=== PATIENT | female | born 1950 | race Caucasian/White ===

== ENCOUNTER 2017-03-31 17:17 | Inpatient (IN) | payer OTHER ==
--- NOTE | 2017-03-31 18:33 | ER Document Report ---
ED General - General Chief Complaint: Nose Bleed Stated Complaint: POSSIBLE SYNCOPE EPISODE Time Seen by Provider: 03/31/17 18:16 Mode of Arrival: Ambulatory Information source: Patient TRAVEL OUTSIDE OF THE [place] IN LAST 30 DAYS: No - HPI Patient complains to provider of: nosebleed, dark stools Onset: Other - Dark colored stools of been going on for 3-4 days, no bleeding since yesterday evening Onset/Duration: Gradual Quality of pain: No pain Associated symptoms: Weakness Exacerbated by: Denies Relieved by: Denies Similar symptoms previously: No Recently seen / treated by doctor: No Notes: Patient is a 66-year-old female who presents to the emergency room complaining of nosebleed since yesterday evening, she denies any trauma, states she blew her nose really hard and it has been bleeding since, although it has subsided by the time I examined her, she denies any pain, no difficulty breathing, she does report that she feels tired a lot, her daughter at bedside reports that she has been having some dark blackish colored stools for the past 4-5 days as well, patient has no known GI bleed in the past, she does not take any blood thinners but does use 2 or more Goody powders daily denies any abdominal pain, no vomiting, no fever - Related Data Allergies/Adverse Reactions: No Known Allergies Allergy (Unverified 06/28/16 18:16) Past Medical History - General Information source: Patient, Relative - Social History Smoking Status: Never Smoker Chew tobacco use (# tins/day): Yes Frequency of alcohol use: None Drug Abuse: None Family History: DM, Hypertension - Past Medical History Cardiac Medical History: Reports: Hx Hypercholesterolemia, Hx Hypertension Neurological Medical History: Reports: Hx Cerebrovascular Accident Endocrine Medical History: Reports: Hx Diabetes Mellitus Type 2 Psychiatric Medical History: Reports: Hx Depression Past Surgical History: Reports: Hx Hysterectomy, Hx Tubal Ligation - Immunizations Hx Diphtheria, Pertussis, Tetanus Vaccination: Yes Review of Systems - Review of Systems Constitutional: No symptoms reported EENT: See HPI Cardiovascular: No symptoms reported Respiratory: No symptoms reported Gastrointestinal: See HPI Genitourinary: No symptoms reported Female Genitourinary: No symptoms reported Musculoskeletal: No symptoms reported Skin: No symptoms reported Hematologic/Lymphatic: No symptoms reported Neurological/Psychological: No symptoms reported -: Yes All other systems reviewed and negative Physical Exam - Vital signs Vitals: Resp Pulse Ox 12 97 03/31/17 17:38 03/31/17 17:38 Interpretation: Normal - General General appearance: Appears well, Alert - HEENT Head: Normocephalic, Atraumatic Eyes: Normal Conjunctiva: Normal Extraocular movements intact: Yes Eyelashes: Normal Pupils: PERRL Nasal: Other - There is a large blood clot in the left nare, no active bleeding Pharynx: Normal Neck: Normal - Respiratory Respiratory status: No respiratory distress Chest status: Nontender Breath sounds: Normal Chest palpation: Normal - Cardiovascular Rhythm: Regular Heart sounds: Normal auscultation Murmur: No - Abdominal Inspection: Normal Distension: No distension Bowel sounds: Normal Tenderness: Nontender Organomegaly: No organomegaly - Rectal Tenderness: No Stool: Black Hemorrhoids: None - Back Back: Normal, Nontender - Extremities General upper extremity: Normal inspection, Nontender, Normal color, Normal ROM , Normal temperature General lower extremity: Normal inspection, Nontender, Normal color, Normal ROM , Normal temperature, Normal weight bearing. No: Nessa's sign - Neurological Neuro grossly intact: Yes Cognition: Normal Orientation: AAOx4 [place] Coma Scale Eye Opening: Spontaneous [place] Coma Scale Verbal: Oriented [place] Coma Scale Motor: Obeys Commands [place] Coma Scale Total: 15 Speech: Normal Motor strength normal: LUE, RUE, LLE, RLE Sensory: Normal - Psychological Associated symptoms: Normal affect, Normal mood - Skin Skin Temperature: Warm Skin Moisture: Dry Skin Color: Normal Course - Re-evaluation Re-evalutation: 03/31/17 19:40 Discussed with on-call trim operator, Dr. Seaman, who the patient and likely scope her in the morning, recommend that she may eat dinner tonight then maintain a clear liquid diet afyter midnight and he will evaluate patient in the morning 03/31/17 19:51 Discussed with the hospitalist who agreed to admit for further evaluation and treatment - Vital Signs Vital signs: Temp Pulse Resp BP Pulse Ox 97.8 F 14 134/75 H 94 03/31/17 19:12 03/31/17 18:01 03/31/17 18:01 03/31/17 18:30 - Laboratory Result Diagrams: 03/31/17 18:45 03/31/17 18:45 Laboratory results interpreted by me: 03/31/17 03/31/17 03/31/17 18:45 18:45 18:45 WBC 14.8 H RBC 3.67 L Hgb 10.4 L Hct 32.2 L Seg Neutrophils % 83.4 H Monocytes % 2.7 L Absolute Neutrophils 12.4 H APTT 22.0 L BUN 49 H Glucose 278 H Total Protein 6.1 L - EKG Interpretation by Me EKG shows normal: Sinus rhythm Rate: Normal Rhythm: NSR Discharge - Discharge Clinical Impression: Upper GI bleed Condition: Fair Disposition: ADMITTED INPATIENT Admitting Provider: Hospitalist Unit Admitted: [facility]
[2017-03-31 19:00] LABS: ABSOLUTE MONOCYTES (AUTO) 0.4 10^3/uL (0.1-1.4); ABSOLUTE NEUT (AUTO) 12.4 10^3/uL (1.7-8.2); BASOPHILS % (AUTO) 0.3 % (0-2); EOSINOPHILS % (AUTO) 0.2 % (0-6); HEMATOCRIT 32.2 % (36.0-47.0); HEMOGLOBIN 10.4 g/dL (12.0-15.5); LYMPHOCYTES % (AUTO) 13.4 % (13-45); MEAN CORPUSCULAR HEMOGLOBIN 28.3 pg (27.0-33.4); MEAN CORPUSCULAR HGB CONC 32.3 g/dL (32.0-36.0); MEAN CORPUSCULAR VOLUME 88 fl (80-97); MONOCYTES % (AUTO) 2.7 % (3-13); RED BLOOD COUNT 3.67 10^6/uL (3.72-5.28); RED CELL DISTRIBUTION WIDTH 13.2 % (11.5-14.0); SEGMENTED NEUTROPHILS % (AUTO) 83.4 % (42-78); WHITE BLOOD COUNT 14.8 10^3/uL (4.0-10.5)
[2017-03-31 19:04] LABS: PROTHROMBIN TIME 13.7 SEC (11.4-15.4)
[2017-03-31 19:19] LABS: ALANINE AMINOTRANSFERASE 22 U/L (9-52); ALBUMIN 3.5 g/dL (3.5-5.0); ALKALINE PHOSPHATASE 55 U/L (38-126); ANION GAP 10 (5-19); ASPARTATE AMINO TRANSFERASE 14 U/L (14-36); BILIRUBIN,DIRECT 0.3 mg/dL (0.0-0.4); BILIRUBIN,TOTAL 0.4 mg/dL (0.2-1.3); BLOOD UREA NITROGEN 49 mg/dL (7-20); CALCIUM 8.9 mg/dL (8.4-10.2); CARBON DIOXIDE 24 mmol/L (22-30); CHLORIDE 104 mmol/L (98-107); CREATININE RESULT 0.93 mg/dL (0.52-1.25); GLUCOSE 278 mg/dL (75-110); POTASSIUM 4.9 mmol/L (3.6-5.0); SODIUM 138.2 mmol/L (137-145); TOTAL PROTEIN 6.1 g/dL (6.3-8.2)
[2017-03-31] MEDS ORDERED: PANTOPRAZOLE SODIUM 40 MG VIAL IV ONE (19:35)
[2017-03-31] MEDS ORDERED: GLUCAGON,HUMAN RECOMB 1 MG INJ IM PRN (19:52)
[2017-03-31] MEDS ORDERED: DEXTROSE 40% GEL 15 GM TUBE PO PRN ×2 (19:52)
[2017-03-31] MEDS ORDERED: IPRATROPIUM/ALBUTEROL 0.5-2.5 MG/3 ML AMPUL NEB PRN (19:52)
[2017-03-31] MEDS ORDERED: DEXTROSE 50%-WATER 25 GM/50 ML DISP.SYRIN IV PRN ×2 (19:52)
[2017-03-31] MEDS: PANTOPRAZOLE SODIUM 40 MG VIAL IV PRN (20:14)
[2017-03-31] MEDS: NORMAL SALINE 1000 ML 1,000 ML IV SCH (20:14)
[2017-03-31 20:32] LABS: PROTHROMBIN TIME 13.7 SEC (11.4-15.4)
--- NOTE | 2017-03-31 22:18 | PDOC H&P ---
History of Present Illness Admission Date/PCP: 03/31/17 19:52 Patient complains of: Black stools and nosebleed History of Present Illness: LENA OWUSU is a 66 year old female with a past medical history of hypertension , coronary artery disease, and diabetes. Who has had several days of dark colored stools and 24 hours of epistasis prompting her to seek evaluation in the emergency room. She is found to have a reduction in her hemoglobin from baseline and referred to the hospitalist for admission. She admits some nausea with vomiting of gastric content but no bright red blood or coffee-ground material. She denies history of previous GI bleeding or endoscopy. No new medicines however she takes 2 Goody powder packets per day. Past Medical History Cardiac Medical History: Reports: Hyperlipidema, Hypertension Endocrine Medical History: Reports: Diabetes Mellitus Type 2 Psychiatric Medical History: Reports: Depression Past Surgical History Past Surgical History: Reports: Hysterectomy, Tubal Ligation Social History Information Source: Patient Lives with: Family Smoking Status: Never Smoker Frequency of Alcohol Use: None Hx Recreational Drug Use: No Hx Prescription Drug Abuse: No - Advance Directive Resuscitation Status: Full Code Family History Family History: DM, Hypertension Parental Family History Reviewed: Yes Children Family History Reviewed: Yes Sibling(s) Family History Reviewed.: Yes Medication/Allergy Home Medications: Albuterol Sulfate [Proair HFA] 2 puff IH Q6HP PRN 03/31/17 Atorvastatin Calcium [Lipitor 40 mg Tablet] 40 mg PO QHS 03/31/17 Carvedilol [Coreg 12.5 mg Tablet] 12.5 mg PO Q12 03/31/17 Chlorthalidone [Chlorthalidone 25 mg Tablet] 12.5 mg PO DAILY 03/31/17 Clonidine HCl [Catapres 0.1 mg Tablet] 0.1 mg PO DAILYP PRN 03/31/17 Clopidogrel Bisulfate [Plavix 75 mg Tablet] 75 mg PO DAILY 03/31/17 Fluoxetine HCl [Prozac] 10 mg PO QHS 03/31/17 Glimepiride [Amaryl 4 mg Tablet] 4 mg PO DAILY 03/31/17 Lisinopril [Prinivil 40 mg Tablet] 40 mg PO DAILY 03/31/17 Metformin HCl [Glucophage] 1,000 mg PO BIDACBS 03/31/17 Pramipexole Di-HCl [Mirapex] 0.125 mg PO QHS 03/31/17 Sitagliptin Phosphate [Januvia] 100 mg PO DAILY 03/31/17 Zolpidem Tartrate [Ambien] 10 mg PO QHS 03/31/17 Allergies/Adverse Reactions: No Known Allergies Allergy (Unverified 06/28/16 18:16) Review of Systems Constitutional: ABSENT: chills, fever(s), headache(s), weight gain, weight loss Eyes: ABSENT: visual disturbances Ears: ABSENT: hearing changes Cardiovascular: ABSENT: chest pain, dyspnea on exertion, edema, orthropnea, palpitations Respiratory: ABSENT: cough, hemoptysis Gastrointestinal: ABSENT: abdominal pain, constipation, diarrhea, hematemesis, hematochezia, nausea, vomiting Genitourinary: ABSENT: dysuria, hematuria Musculoskeletal: ABSENT: joint swelling Integumentary: ABSENT: rash, wounds Neurological: ABSENT: abnormal gait, abnormal speech, confusion, dizziness, focal weakness, syncope Psychiatric: ABSENT: anxiety, depression, homidical ideation, suicidal ideation Endocrine: ABSENT: cold intolerance, heat intolerance, polydipsia, polyuria Hematologic/Lymphatic: ABSENT: easy bleeding, easy bruising Physical Exam Vital Signs: Temp Pulse Resp BP Pulse Ox 97.8 F 16 130/67 H 95 03/31/17 19:12 03/31/17 21:01 03/31/17 21:01 03/31/17 21:01 General appearance: PRESENT: no acute distress, obese, well-developed, well- nourished Head exam: PRESENT: atraumatic, normocephalic Eye exam: PRESENT: conjunctiva pink, EOMI, PERRLA. ABSENT: scleral icterus Ear exam: PRESENT: normal external ear exam Mouth exam: PRESENT: moist, tongue midline Neck exam: ABSENT: carotid bruit, JVD, lymphadenopathy, thyromegaly Respiratory exam: PRESENT: clear to auscultation prasad. ABSENT: rales, rhonchi, wheezes Cardiovascular exam: PRESENT: RRR. ABSENT: diastolic murmur, rubs, systolic murmur Pulses: PRESENT: normal dorsalis pedis pul Vascular exam: PRESENT: normal capillary refill GI/Abdominal exam: PRESENT: normal bowel sounds, soft. ABSENT: distended, guarding, mass, organolmegaly, rebound, tenderness Rectal exam: PRESENT: deferred Extremities exam: PRESENT: full ROM. ABSENT: calf tenderness, clubbing, pedal edema Neurological exam: PRESENT: alert, awake, oriented to person, oriented to place , oriented to time, oriented to situation, CN II-XII grossly intact. ABSENT: motor sensory deficit Psychiatric exam: PRESENT: appropriate affect, normal mood. ABSENT: homicidal ideation, suicidal ideation Skin exam: PRESENT: dry, intact, warm. ABSENT: cyanosis, rash Assessment & Plan - Diagnosis (1) Upper GI bleed Is this a current diagnosis for this admission?: YesPlan: Likely NSAID gastritis, n.p.o., IV Protonix, serial CBC, type and screen as needed and GI consult for upper EGD (2) Anemia Is this a current diagnosis for this admission?: YesPlan: Please see #1 (3) Epistaxis Is this a current diagnosis for this admission?: YesPlan: Patient's black colored stool was apparent prior to epistasis. Consider ENT consultation if Afrin and tamponade unsuccessful. (4) Type 2 diabetes mellitus with hyperglycemia Qualifiers: Diabetes mellitus long-term insulin use: unspecified extermination supervisor insulin use status Qualified Code(s): E11.65 - Type 2 diabetes mellitus with hyperglycemia Is this a current diagnosis for this admission?: YesPlan: N.p.o. insulin protocol every 6 hours - Time Time Spent: 50 to 70 Minutes - Inpatient Certification Medical Necessity: Need Close Monitoring Due to Risk of Patient Decompensation
[2017-03-31] MEDS: HEPARIN SOD (PORCINE) 5,000 UNIT/ML 1 ML SYRINGE SUBCUT SCH (22:36)
[2017-03-31] MEDS ORDERED: OXYMETAZOLINE HCL 0.05% NASAL SPRAY 15 ML BOTTLE NASL ONE (23:15)
[2017-03-31] MEDS: CLONIDINE HCL 0.2 MG TABLET PO SCH (23:20)
[2017-03-31] MEDS ORDERED: OXYMETAZOLINE HCL 0.05% NASAL SPRAY 15 ML BOTTLE ONE (23:26)
[2017-04-01 00:42] LABS: ABSOLUTE BASOPHILS # (AUTO) 0.1 10^3/uL (0.0-0.2); ABSOLUTE LYMPHOCYTES (AUTO) 3.6 10^3/uL (0.5-4.7); ABSOLUTE MONOCYTES (AUTO) 0.6 10^3/uL (0.1-1.4); ABSOLUTE NEUT (AUTO) 8.9 10^3/uL (1.7-8.2); BASOPHILS % (AUTO) 0.6 % (0-2); EOSINOPHILS % (AUTO) 0.3 % (0-6); HEMATOCRIT 28.8 % (36.0-47.0); HEMOGLOBIN 9.4 g/dL (12.0-15.5); HGB HCT DIFFERENCE -0.6; MEAN CORPUSCULAR HEMOGLOBIN 28.4 pg (27.0-33.4); MEAN CORPUSCULAR HGB CONC 32.7 g/dL (32.0-36.0); MEAN CORPUSCULAR VOLUME 87 fl (80-97); MONOCYTES % (AUTO) 4.9 % (3-13); RED BLOOD COUNT 3.32 10^6/uL (3.72-5.28); RED CELL DISTRIBUTION WIDTH 13.1 % (11.5-14.0); SEGMENTED NEUTROPHILS % (AUTO) 67.2 % (42-78); WHITE BLOOD COUNT 13.3 10^3/uL (4.0-10.5)
[2017-04-01] MEDS: INSULIN LISPRO 100 UNIT/ML 3 ML VIAL SUBCUT PRN ×5 (01:11→22:00)
[2017-04-01 04:47] LABS: ABSOLUTE BASOPHILS # (AUTO) 0.1 10^3/uL (0.0-0.2); ABSOLUTE EOSINOPHILS # (AUTO) 0.1 10^3/uL (0.0-0.6); ABSOLUTE LYMPHOCYTES (AUTO) 4.1 10^3/uL (0.5-4.7); ABSOLUTE MONOCYTES (AUTO) 0.7 10^3/uL (0.1-1.4); ABSOLUTE NEUT (AUTO) 8.7 10^3/uL (1.7-8.2); BASOPHILS % (AUTO) 0.6 % (0-2); EOSINOPHILS % (AUTO) 0.6 % (0-6); HEMATOCRIT 26.9 % (36.0-47.0); HEMOGLOBIN 8.8 g/dL (12.0-15.5); HGB HCT DIFFERENCE -0.5; LYMPHOCYTES % (AUTO) 29.8 % (13-45); MEAN CORPUSCULAR HEMOGLOBIN 28.6 pg (27.0-33.4); MEAN CORPUSCULAR HGB CONC 32.9 g/dL (32.0-36.0); MEAN CORPUSCULAR VOLUME 87 fl (80-97); MONOCYTES % (AUTO) 5.3 % (3-13); RED BLOOD COUNT 3.09 10^6/uL (3.72-5.28); RED CELL DISTRIBUTION WIDTH 13.2 % (11.5-14.0); SEGMENTED NEUTROPHILS % (AUTO) 63.7 % (42-78); WHITE BLOOD COUNT 13.6 10^3/uL (4.0-10.5)
[2017-04-01] MEDS: HEPARIN SOD (PORCINE) 5,000 UNIT/ML 1 ML SYRINGE SUBCUT SCH ×3 (04:53→22:32)
[2017-04-01] MEDS: CLONIDINE HCL 0.2 MG TABLET PO SCH ×3 (04:54→22:31)
[2017-04-01 05:05] LABS: ANION GAP 12 (5-19); BLOOD UREA NITROGEN 42 mg/dL (7-20); CALCIUM 8.4 mg/dL (8.4-10.2); CARBON DIOXIDE 25 mmol/L (22-30); CHLORIDE 105 mmol/L (98-107); GLUCOSE 252 mg/dL (75-110); SODIUM 141.7 mmol/L (137-145)
[2017-04-01 05:27] LABS: POTASSIUM 3.8 mmol/L (3.6-5.0)
[2017-04-01] MEDS ORDERED: NORMAL SALINE 250 ML IV PRN ×2 (05:45)
[2017-04-01 06:14] LABS: APPEARANCE,URINE SLIGHTLY-CLOUDY; BILIRUBIN,URINE NEGATIVE (NEGATIVE); GLUCOSE, URINE >=500 mg/dL (NEGATIVE); KETONES,URINE NEGATIVE (NEGATIVE); LEUKOCYTE ESTERASE,URINE LARGE (NEGATIVE); NITRITE,URINE NEGATIVE (NEGATIVE); PROTEIN,URINE NEGATIVE (NEGATIVE); URINE SPECIFIC GRAVITY 1.013; UROBILINOGEN,URINE NEGATIVE mg/dL (<2.0)
[2017-04-01] MEDS: PANTOPRAZOLE SODIUM 40 MG VIAL IV PRN ×2 (07:38→18:47)
--- NOTE | 2017-04-01 07:52 | EKG REPORT ---
SEVERITY:- NORMAL ECG - SINUS RHYTHM : Confirmed by: Dinesh Thapa MD 01-Apr-2017 07:51:23
--- NOTE | 2017-04-01 10:04 | PDOC PROGRESS REPORT ---
Subjective Progress Note for:: 04/01/17 Subjective:: Denies having any further melanotic stool Physical Exam Vital Signs: Temp Pulse Resp BP Pulse Ox 97.9 F 83 18 141/62 H 91 L 04/01/17 07:26 04/01/17 07:26 04/01/17 07:26 04/01/17 07:26 04/01/17 07:26 Intake & Output 03/31/17 04/01/17 04/02/17 06:59 06:59 06:59 Intake Total 1600 Output Total 0 Balance 1600 General appearance: PRESENT: no acute distress Eye exam: PRESENT: conjunctiva pink. ABSENT: scleral icterus Mouth exam: PRESENT: moist, tongue midline Neck exam: ABSENT: JVD Respiratory exam: PRESENT: clear to auscultation prasad. ABSENT: rales, rhonchi, wheezes Cardiovascular exam: PRESENT: RRR. ABSENT: diastolic murmur, rubs, systolic murmur GI/Abdominal exam: PRESENT: normal bowel sounds, soft. ABSENT: distended, guarding, mass, organolmegaly, rebound, tenderness Extremities exam: ABSENT: calf tenderness, clubbing, pedal edema Neurological exam: PRESENT: alert, awake, oriented to person, oriented to place , oriented to time, oriented to situation, CN II-XII grossly intact. ABSENT: motor sensory deficit Psychiatric exam: PRESENT: appropriate affect Skin exam: PRESENT: dry, intact, warm. ABSENT: cyanosis, rash Results Laboratory Results: 04/01/17 03:41 04/01/17 03:41 04/01/17 04/01/17 04/01/17 00:33 03:41 03:41 WBC 13.3 H 13.6 H RBC 3.32 L 3.09 L Hgb 9.4 L 8.8 L Hct 28.8 L 26.9 L MCV 87 87 MCH 28.4 28.6 MCHC 32.7 32.9 RDW 13.1 13.2 Plt Count 308 291 Seg Neutrophils % 67.2 63.7 Lymphocytes % 27.0 29.8 Monocytes % 4.9 5.3 Eosinophils % 0.3 0.6 Basophils % 0.6 0.6 Absolute Neutrophils 8.9 H 8.7 H Absolute Lymphocytes 3.6 4.1 Absolute Monocytes 0.6 0.7 Absolute Eosinophils 0.0 0.1 Absolute Basophils 0.1 0.1 Sodium 141.7 Potassium 3.8 D Chloride 105 Carbon Dioxide 25 Anion Gap 12 BUN 42 H Creatinine 0.90 Est GFR ( Amer) > 60 Est GFR (Non-Af Amer) > 60 Glucose 252 H Calcium 8.4 Urine Color Urine Appearance Urine pH Ur Specific [place] Urine Protein Urine Glucose (UA) Urine Ketones Urine Blood Urine Nitrite Ur Leukocyte Esterase Urine WBC (Auto) Urine RBC (Auto) Blood Type Antibody Screen 04/01/17 04/01/17 05:45 05:56 WBC RBC Hgb Hct MCV MCH MCHC RDW Plt Count Seg Neutrophils % Lymphocytes % Monocytes % Eosinophils % Basophils % Absolute Neutrophils Absolute Lymphocytes Absolute Monocytes Absolute Eosinophils Absolute Basophils Sodium Potassium Chloride Carbon Dioxide Anion Gap BUN Creatinine Est GFR ( Amer) Est GFR (Non-Af Amer) Glucose Calcium Urine Color STRAW Urine Appearance SLIGHTLY-CLOUDY Urine pH 5.0 Ur Specific [place] 1.013 Urine Protein NEGATIVE Urine Glucose (UA) >=500 H Urine Ketones NEGATIVE Urine Blood SMALL H Urine Nitrite NEGATIVE Ur Leukocyte Esterase LARGE H Urine WBC (Auto) 88 Urine RBC (Auto) 4 Blood Type A POSITIVE Antibody Screen NEGATIVE Assessment & Plan - Diagnosis (1) Anemia Is this a current diagnosis for this admission?: YesPlan: Has had epistaxis along with melanotic stool. Is unclear whether her melena may be from her epistaxis or whether it is from an upper GI source. Patient is to be evaluated by gastroenterology today (2) Upper GI bleed Is this a current diagnosis for this admission?: YesPlan: Patient to be evaluated by GI today (3) Hyperlipidemia Qualifiers: Hyperlipidemia type: unspecified Qualified Code(s): E78.5 - Hyperlipidemia, unspecified Is this a current diagnosis for this admission?: Yes (4) Type 2 diabetes mellitus with hyperglycemia Qualifiers: Diabetes mellitus prison insulin use: unspecified equipment operator intermodal yard insulin use status Qualified Code(s): E11.65 - Type 2 diabetes mellitus with hyperglycemia Is this a current diagnosis for this admission?: YesPlan: Continue with sliding scale insulin - Time Time Spent with patient: 25-34 minutes - Inpatient Certification Medical Necessity: Need Close Monitoring Due to Risk of Patient Decompensation - Plan Summary Plan Summary: Patient to be evaluated by GI today.
[2017-04-01] MEDS ORDERED: NALOXONE HCL INJ/PF 0.4 MG/1 ML SDV ONE (10:42)
[2017-04-01] MEDS ORDERED: ONDANSETRON HCL INJ/PF 4 MG/2 ML SDV ONE (10:42)
[2017-04-01] MEDS ORDERED: DIPHENHYDRAMINE HCL 50 MG/ML VIAL ONE (10:42)
[2017-04-01] MEDS ORDERED: EPINEPHRINE INJ 1 MG/10 ML DISP.SYRIN ONE (10:43)
[2017-04-01] MEDS ORDERED: GLUCAGON,HUMAN RECOMB 1 MG INJ ONE (10:43)
[2017-04-01] MEDS ORDERED: FLUMAZENIL INJ 0.5 MG/5 ML VIAL IV ONE (10:43)
--- NOTE | 2017-04-01 11:08 | PDOC CONSULTATION ---
Consultation Consult Date: 03/31/17 Attending physician:: ROSA ORTIZ Consult reason:: Melena History of Present Illness Admission Date/PCP: 03/31/17 19:52 History of Present Illness: patient was admitted overnight on the hospitalist service patient had been having nose bleeds and according to the family had been swallowing the blood however she not was noted to be anemia and does have a history of Goody Powder use patient states she got nauseated denies any previous history of GI bleeding does have a history of GERD there is no dysphagia or odynophagia appetite seems to be normal there is no early satiety patient will need EGD done to exclude for possible peptic ulcer disease she is willing to proceed Past Medical History Cardiac Medical History: Reports: Hyperlipidema, Hypertension Endocrine Medical History: Reports: Diabetes Mellitus Type 2 Psychiatric Medical History: Reports: Depression Past Surgical History Past Surgical History: Reports: Hysterectomy, Tubal Ligation Social History Lives with: Family Smoking Status: Never Smoker Frequency of Alcohol Use: None Hx Recreational Drug Use: No Hx Prescription Drug Abuse: No - Advance Directive Resuscitation Status: Full Code Family History Family History: DM, Hypertension Parental Family History Reviewed: Yes Children Family History Reviewed: Unknown Sibling(s) Family History Reviewed.: Unknown Medication/Allergy Home Medications: Albuterol Sulfate [Proair HFA] 2 puff IH Q6HP PRN 03/31/17 Atorvastatin Calcium [Lipitor 40 mg Tablet] 40 mg PO QHS 03/31/17 Carvedilol [Coreg 12.5 mg Tablet] 12.5 mg PO Q12 03/31/17 Chlorthalidone [Chlorthalidone 25 mg Tablet] 12.5 mg PO DAILY 03/31/17 Clonidine HCl [Catapres 0.1 mg Tablet] 0.1 mg PO DAILYP PRN 03/31/17 Clopidogrel Bisulfate [Plavix 75 mg Tablet] 75 mg PO DAILY 03/31/17 Fluoxetine HCl [Prozac] 10 mg PO QHS 03/31/17 Glimepiride [Amaryl 4 mg Tablet] 4 mg PO DAILY 03/31/17 Lisinopril [Prinivil 40 mg Tablet] 40 mg PO DAILY 03/31/17 Metformin HCl [Glucophage] 1,000 mg PO BIDACBS 03/31/17 Pramipexole Di-HCl [Mirapex] 0.125 mg PO QHS 03/31/17 Sitagliptin Phosphate [Januvia] 100 mg PO DAILY 03/31/17 Zolpidem Tartrate [Ambien] 10 mg PO QHS 03/31/17 Allergies/Adverse Reactions: No Known Allergies Allergy (Unverified 06/28/16 18:16) Review of Systems Constitutional: ABSENT: fever(s), headache(s), night sweats, weakness Eyes: ABSENT: visual disturbances Ears: ABSENT: hearing changes Nose, Mouth, and Throat: ABSENT: mouth pain Cardiovascular: ABSENT: chest pain, orthropnea Respiratory: ABSENT: dyspnea, hemoptysis Gastrointestinal: PRESENT: heartburn, melena. ABSENT: diarrhea, dysphagia, nausea, vomiting Genitourinary: ABSENT: dysuria, hematuria Musculoskeletal: ABSENT: deformity Integumentary: ABSENT: pruritus Endocrine: ABSENT: polydipsia, polyphagia, polyuria Hematologic/Lymphatic: ABSENT: easy bruising, lymphadenopathy Physical Exam Vital Signs: Temp Pulse Resp BP Pulse Ox 97.9 F 87 17 142/73 H 92 04/01/17 10:31 04/01/17 10:31 04/01/17 10:31 04/01/17 10:31 04/01/17 10:31 Intake & Output 03/31/17 04/01/17 04/02/17 06:59 06:59 06:59 Intake Total 1600 0 Output Total 0 Balance 1600 0 General appearance: PRESENT: no acute distress, well-developed, well-nourished Head exam: PRESENT: atraumatic, normocephalic Eye exam: PRESENT: EOMI, PERRLA. ABSENT: nystagmus, periorbital swelling, scleral icterus Teeth exam: ABSENT: edentulous Throat exam: ABSENT: tonsillar exudate, tonsillogmegaly Neck exam: ABSENT: meningismus, tenderness, thyromegaly Respiratory exam: PRESENT: clear to auscultation prasad, symmetrical, unlabored. ABSENT: chest wall tenderness, tachypnea Pulses: PRESENT: normal carotid pulses GI/Abdominal exam: PRESENT: soft. ABSENT: rebound, rigid, tenderness Extremities exam: ABSENT: joint swelling Musculoskeletal exam: PRESENT: full ROM Neurological exam: PRESENT: alert, awake, oriented to time, oriented to situation, reflexes normal, CN II-XII grossly intact Psychiatric exam: PRESENT: appropriate affect Skin exam: PRESENT: normal color. ABSENT: mottled, pallor, petechiae, urticaria , vesicles Results Laboratory Results: 04/01/17 03:41 04/01/17 03:41 04/01/17 04/01/17 04/01/17 00:33 03:41 03:41 WBC 13.3 H 13.6 H RBC 3.32 L 3.09 L Hgb 9.4 L 8.8 L Hct 28.8 L 26.9 L MCV 87 87 MCH 28.4 28.6 MCHC 32.7 32.9 RDW 13.1 13.2 Plt Count 308 291 Seg Neutrophils % 67.2 63.7 Lymphocytes % 27.0 29.8 Monocytes % 4.9 5.3 Eosinophils % 0.3 0.6 Basophils % 0.6 0.6 Absolute Neutrophils 8.9 H 8.7 H Absolute Lymphocytes 3.6 4.1 Absolute Monocytes 0.6 0.7 Absolute Eosinophils 0.0 0.1 Absolute Basophils 0.1 0.1 Sodium 141.7 Potassium 3.8 D Chloride 105 Carbon Dioxide 25 Anion Gap 12 BUN 42 H Creatinine 0.90 Est GFR ( Amer) > 60 Est GFR (Non-Af Amer) > 60 Glucose 252 H Calcium 8.4 Urine Color Urine Appearance Urine pH Ur Specific [place] Urine Protein Urine Glucose (UA) Urine Ketones Urine Blood Urine Nitrite Ur Leukocyte Esterase Urine WBC (Auto) Urine RBC (Auto) Blood Type Antibody Screen 04/01/17 04/01/17 05:45 05:56 WBC RBC Hgb Hct MCV MCH MCHC RDW Plt Count Seg Neutrophils % Lymphocytes % Monocytes % Eosinophils % Basophils % Absolute Neutrophils Absolute Lymphocytes Absolute Monocytes Absolute Eosinophils Absolute Basophils Sodium Potassium Chloride Carbon Dioxide Anion Gap BUN Creatinine Est GFR ( Amer) Est GFR (Non-Af Amer) Glucose Calcium Urine Color STRAW Urine Appearance SLIGHTLY-CLOUDY Urine pH 5.0 Ur Specific [place] 1.013 Urine Protein NEGATIVE Urine Glucose (UA) >=500 H Urine Ketones NEGATIVE Urine Blood SMALL H Urine Nitrite NEGATIVE Ur Leukocyte Esterase LARGE H Urine WBC (Auto) 88 Urine RBC (Auto) 4 Blood Type A POSITIVE Antibody Screen NEGATIVE Assessment & Plan - Diagnosis (1) Anemia Is this a current diagnosis for this admission?: YesPlan: could be chronic in nature or due to bleeding she does use Plavix and has had a history of NSAIDS use do not know which if either may be contributing to her anemia may need out patient colonoscopy (2) Epistaxis Is this a current diagnosis for this admission?: YesPlan: conservative measures for now may need to call ENT if any further bleeding (3) Upper GI bleed Is this a current diagnosis for this admission?: YesPlan: will need EGD to be done Risks, benefits and alternatives are explained to the patient in detail further recommendations to follow liquid diet will schedule in the am - Time Time Spent: 50 to 70 Minutes
[2017-04-01] MEDS: MIDAZOLAM 2 MG/2 ML INJ ONE ×2 (11:39→11:45)
[2017-04-01] MEDS: FENTANYL CITRATE INJ/PF 100 MCG/2 ML AMPUL ONE ×2 (11:41→11:43)
--- NOTE | 2017-04-01 11:58 | Operative Report ---
Operative Report DATE OF SURGERY: 04/01/17 Operative Report: The risks benefits and alternatives of the procedure explained to the patient in detail and informed consent is obtained. A GIF Olympus video scope was inserted into the patient's mouth and hypopharynx, the esophagus is identified intubated and insufflated, the scope was then advanced through the esophagus stomach and duodenum, retroflexion maneuver is done, the esophagus stomach and first and second portions of the duodenum examined PREOPERATIVE DIAGNOSIS: Possible GI bleeding POSTOPERATIVE DIAGNOSIS: Epistaxis. Mild gastritis. Hiatal hernia OPERATION: EGD with biopsy SURGEON: ROSA ORTIZ ANESTHESIA: Moderate Sedation - 4 mg of Versed, 50 mcg of fentanyl. Conscious sedation monitoring time 30 minutes. TISSUE REMOVED OR ALTERED: Single gastric mucosal specimen obtained to rule out Helicobacter pylori COMPLICATIONS: None. ESTIMATED BLOOD LOSS: None. INTRAOPERATIVE FINDINGS: Fresh blood appears to be coming from the nares. Esophagus normal. Hiatal hernia. Mild gastritis. First and second portions of the duodenum normal PROCEDURE: Patient tolerated procedure well. No immediate postprocedure complications are noted. She sent back to her room in good condition. Resume diet advance as tolerated Resume previous activity level Should be able to be discharged unless there are any other issues May need to call ENT if if there is any further bleeding Follow-up as needed
[2017-04-01] MEDS: NORMAL SALINE 1000 ML 1,000 ML IV SCH (13:03)
[2017-04-01 15:16] LABS: ABSOLUTE BASOPHILS # (AUTO) 0.1 10^3/uL (0.0-0.2); ABSOLUTE EOSINOPHILS # (AUTO) 0.2 10^3/uL (0.0-0.6); ABSOLUTE LYMPHOCYTES (AUTO) 3.1 10^3/uL (0.5-4.7); ABSOLUTE MONOCYTES (AUTO) 0.5 10^3/uL (0.1-1.4); ABSOLUTE NEUT (AUTO) 7.1 10^3/uL (1.7-8.2); BASOPHILS % (AUTO) 0.7 % (0-2); EOSINOPHILS % (AUTO) 1.8 % (0-6); HEMATOCRIT 29.7 % (36.0-47.0); HEMOGLOBIN 9.9 g/dL (12.0-15.5); LYMPHOCYTES % (AUTO) 28.4 % (13-45); MEAN CORPUSCULAR HEMOGLOBIN 29.1 pg (27.0-33.4); MEAN CORPUSCULAR HGB CONC 33.4 g/dL (32.0-36.0); MEAN CORPUSCULAR VOLUME 87 fl (80-97); MONOCYTES % (AUTO) 4.7 % (3-13); RED BLOOD COUNT 3.41 10^6/uL (3.72-5.28); RED CELL DISTRIBUTION WIDTH 13.1 % (11.5-14.0); SEGMENTED NEUTROPHILS % (AUTO) 64.4 % (42-78)
[2017-04-01 21:10] LABS: ABSOLUTE BASOPHILS # (AUTO) 0.1 10^3/uL (0.0-0.2); ABSOLUTE EOSINOPHILS # (AUTO) 0.2 10^3/uL (0.0-0.6); ABSOLUTE MONOCYTES (AUTO) 0.5 10^3/uL (0.1-1.4); ABSOLUTE NEUT (AUTO) 6.7 10^3/uL (1.7-8.2); BASOPHILS % (AUTO) 0.6 % (0-2); EOSINOPHILS % (AUTO) 2.1 % (0-6); HEMATOCRIT 32.2 % (36.0-47.0); HEMOGLOBIN 11.1 g/dL (12.0-15.5); HGB HCT DIFFERENCE 1.1; LYMPHOCYTES % (AUTO) 28.6 % (13-45); MEAN CORPUSCULAR HEMOGLOBIN 29.5 pg (27.0-33.4); MEAN CORPUSCULAR HGB CONC 34.6 g/dL (32.0-36.0); MEAN CORPUSCULAR VOLUME 85 fl (80-97); MONOCYTES % (AUTO) 5.1 % (3-13); RED BLOOD COUNT 3.77 10^6/uL (3.72-5.28); RED CELL DISTRIBUTION WIDTH 13.1 % (11.5-14.0); SEGMENTED NEUTROPHILS % (AUTO) 63.6 % (42-78); WHITE BLOOD COUNT 10.6 10^3/uL (4.0-10.5)
[2017-04-01] MEDS ORDERED: NORMAL SALINE 100 ML with PANTOPRAZOLE SODIUM 80 MG IV PRN ×2 (21:11)
[2017-04-01] MEDS ORDERED: ACETAMINOPHEN 325 MG TABLET PO PRN (23:25)
[2017-04-02 00:25] LABS: ABSOLUTE BASOPHILS # (AUTO) 0.1 10^3/uL (0.0-0.2); ABSOLUTE EOSINOPHILS # (AUTO) 0.2 10^3/uL (0.0-0.6); ABSOLUTE LYMPHOCYTES (AUTO) 3.1 10^3/uL (0.5-4.7); ABSOLUTE MONOCYTES (AUTO) 0.4 10^3/uL (0.1-1.4); ABSOLUTE NEUT (AUTO) 6.1 10^3/uL (1.7-8.2); BASOPHILS % (AUTO) 0.6 % (0-2); EOSINOPHILS % (AUTO) 2.1 % (0-6); HEMATOCRIT 32.1 % (36.0-47.0); HEMOGLOBIN 10.9 g/dL (12.0-15.5); HGB HCT DIFFERENCE 0.6; LYMPHOCYTES % (AUTO) 31.3 % (13-45); MEAN CORPUSCULAR HEMOGLOBIN 29.1 pg (27.0-33.4); MEAN CORPUSCULAR VOLUME 86 fl (80-97); MONOCYTES % (AUTO) 4.2 % (3-13); RED BLOOD COUNT 3.75 10^6/uL (3.72-5.28); RED CELL DISTRIBUTION WIDTH 13.4 % (11.5-14.0); SEGMENTED NEUTROPHILS % (AUTO) 61.8 % (42-78)
[2017-04-02] MEDS: CLONIDINE HCL 0.2 MG TABLET PO SCH ×2 (05:58→13:36)
[2017-04-02 06:11] LABS: ABSOLUTE BASOPHILS # (AUTO) 0.1 10^3/uL (0.0-0.2); ABSOLUTE EOSINOPHILS # (AUTO) 0.2 10^3/uL (0.0-0.6); ABSOLUTE LYMPHOCYTES (AUTO) 3.2 10^3/uL (0.5-4.7); ABSOLUTE MONOCYTES (AUTO) 0.5 10^3/uL (0.1-1.4); ABSOLUTE NEUT (AUTO) 5.1 10^3/uL (1.7-8.2); BASOPHILS % (AUTO) 0.7 % (0-2); EOSINOPHILS % (AUTO) 2.5 % (0-6); HEMATOCRIT 32.6 % (36.0-47.0); HGB HCT DIFFERENCE 0.4; LYMPHOCYTES % (AUTO) 35.1 % (13-45); MEAN CORPUSCULAR HEMOGLOBIN 28.8 pg (27.0-33.4); MEAN CORPUSCULAR HGB CONC 33.8 g/dL (32.0-36.0); MEAN CORPUSCULAR VOLUME 85 fl (80-97); RED BLOOD COUNT 3.83 10^6/uL (3.72-5.28); RED CELL DISTRIBUTION WIDTH 13.4 % (11.5-14.0); SEGMENTED NEUTROPHILS % (AUTO) 56.7 % (42-78); WHITE BLOOD COUNT 9.1 10^3/uL (4.0-10.5)
[2017-04-02] MEDS: HEPARIN SOD (PORCINE) 5,000 UNIT/ML 1 ML SYRINGE SUBCUT SCH ×2 (06:33→13:36)
[2017-04-02 07:03] LABS: ANION GAP 9 (5-19); BLOOD UREA NITROGEN 17 mg/dL (7-20); CALCIUM 8.5 mg/dL (8.4-10.2); CARBON DIOXIDE 25 mmol/L (22-30); CHLORIDE 105 mmol/L (98-107); CREATININE RESULT 0.68 mg/dL (0.52-1.25); GLUCOSE 175 mg/dL (75-110); POTASSIUM 3.6 mmol/L (3.6-5.0); SODIUM 138.5 mmol/L (137-145)
[2017-04-02] MEDS: INSULIN LISPRO 100 UNIT/ML 3 ML VIAL SUBCUT PRN ×3 (08:35→18:30)
--- NOTE | 2017-04-02 09:50 | PDOC DISCHARGE SUMMARY ---
General - Admit/Disc Date/PCP Admission Date/Primary Care Provider: 03/31/17 19:52 Discharge Date: 04/02/17 - Discharge Diagnosis (1) Anemia Is this a current diagnosis for this admission?: YesSummary: Most likely secondary to epistaxis (2) Upper GI bleed Is this a current diagnosis for this admission?: YesSummary: Patient presented with melena and epistaxis. The EGD showed gastritis but no obvious source of bleeding. The patient's melena most likely was secondary to swallowed blood from epistaxis. (3) Hyperlipidemia Is this a current diagnosis for this admission?: Yes (4) Type 2 diabetes mellitus with hyperglycemia Is this a current diagnosis for this admission?: Yes - Additional Information Resuscitation Status: Full Code Discharge Diet: Diabetic Discharge Activity: Activity As Tolerated Home Medications: Albuterol Sulfate [Proair HFA] 2 puff IH Q6HP PRN 03/31/17 Atorvastatin Calcium [Lipitor 40 mg Tablet] 40 mg PO QHS 03/31/17 Carvedilol [Coreg 12.5 mg Tablet] 12.5 mg PO Q12 03/31/17 Chlorthalidone [Chlorthalidone 25 mg Tablet] 12.5 mg PO DAILY 03/31/17 Clonidine HCl [Catapres 0.1 mg Tablet] 0.1 mg PO DAILYP PRN 03/31/17 Clopidogrel Bisulfate [Plavix 75 mg Tablet] 75 mg PO DAILY 03/31/17 Fluoxetine HCl [Prozac] 10 mg PO QHS 03/31/17 Glimepiride [Amaryl 4 mg Tablet] 4 mg PO DAILY 03/31/17 Lisinopril [Prinivil 40 mg Tablet] 40 mg PO DAILY 03/31/17 Metformin HCl [Glucophage] 1,000 mg PO BIDACBS 03/31/17 Pramipexole Di-HCl [Mirapex] 0.125 mg PO QHS 03/31/17 Sitagliptin Phosphate [Januvia] 100 mg PO DAILY 03/31/17 Zolpidem Tartrate [Ambien] 10 mg PO QHS 03/31/17 History of Present Illness History of Present Illness: LENA OWUSU is a 66 year old female has a history of 24 hours of epistaxis as well as melanotic stools. Patient was found to have a decrease in her hemoglobin from her baseline and was admitted for further evaluation. Patient denied any vomiting or hematemesis but did have some nausea. She does take 2 Goody powders per day. Hospital Course Hospital Course: 6-year-old female who had been taking Goody's powders every day who presented with melanotic stool. The patient also had had epistaxis. The patient was found to have a reduction in her hemoglobin was admitted for further evaluation. She was started on a Protonix drip and was evaluated by gastroenterology who performed an EGD. The EGD showed her to have gastritis but no obvious active bleeding. Patient's hemoglobin remained stable and it was felt that her melanotic stool was most likely secondary to swallowed blood because of her epistaxis. Patient remained stable and was discharged home Physical Exam Vital Signs: Temp Pulse Resp BP Pulse Ox 98.1 F 79 18 183/78 H 98 04/02/17 07:09 04/02/17 07:09 04/02/17 07:09 04/02/17 07:09 04/02/17 07:09 Intake & Output 04/01/17 04/02/17 04/03/17 06:59 06:59 06:59 Intake Total 1600 3964 Output Total 0 1750 Balance 1600 2214 General appearance: PRESENT: no acute distress Eye exam: PRESENT: conjunctiva pink. ABSENT: scleral icterus Mouth exam: PRESENT: moist, tongue midline Neck exam: ABSENT: carotid bruit, JVD, lymphadenopathy, thyromegaly Respiratory exam: PRESENT: clear to auscultation prasad. ABSENT: rales, rhonchi, wheezes Cardiovascular exam: PRESENT: RRR. ABSENT: diastolic murmur, rubs, systolic murmur GI/Abdominal exam: PRESENT: normal bowel sounds, soft. ABSENT: distended, guarding, mass, organolmegaly, rebound, tenderness Extremities exam: ABSENT: calf tenderness, clubbing, pedal edema Neurological exam: PRESENT: alert, awake, oriented to person, oriented to place , oriented to time, oriented to situation, CN II-XII grossly intact. ABSENT: motor sensory deficit Psychiatric exam: PRESENT: appropriate affect Skin exam: PRESENT: dry, intact, warm. ABSENT: cyanosis, rash Results Laboratory Results: 04/02/17 05:47 04/02/17 05:47 04/01/17 04/01/17 04/01/17 05:56 15:05 21:00 WBC 11.0 H 10.6 H RBC 3.41 L 3.77 Hgb 9.9 L 11.1 L Hct 29.7 L 32.2 L MCV 87 85 MCH 29.1 29.5 MCHC 33.4 34.6 RDW 13.1 13.1 Plt Count 238 217 Seg Neutrophils % 64.4 63.6 Lymphocytes % 28.4 28.6 Monocytes % 4.7 5.1 Eosinophils % 1.8 2.1 Basophils % 0.7 0.6 Absolute Neutrophils 7.1 6.7 Absolute Lymphocytes 3.1 3.0 Absolute Monocytes 0.5 0.5 Absolute Eosinophils 0.2 0.2 Absolute Basophils 0.1 0.1 Sodium Potassium Chloride Carbon Dioxide Anion Gap BUN Creatinine Est GFR ( Amer) Est GFR (Non-Af Amer) Glucose Calcium Blood Type A POSITIVE Antibody Screen NEGATIVE 04/02/17 04/02/17 04/02/17 00:16 05:47 05:47 WBC 10.0 9.1 RBC 3.75 3.83 Hgb 10.9 L 11.0 L Hct 32.1 L 32.6 L MCV 86 85 MCH 29.1 28.8 MCHC 34.0 33.8 RDW 13.4 13.4 Plt Count 214 208 Seg Neutrophils % 61.8 56.7 Lymphocytes % 31.3 35.1 Monocytes % 4.2 5.0 Eosinophils % 2.1 2.5 Basophils % 0.6 0.7 Absolute Neutrophils 6.1 5.1 Absolute Lymphocytes 3.1 3.2 Absolute Monocytes 0.4 0.5 Absolute Eosinophils 0.2 0.2 Absolute Basophils 0.1 0.1 Sodium 138.5 Potassium 3.6 Chloride 105 Carbon Dioxide 25 Anion Gap 9 BUN 17 Creatinine 0.68 Est GFR ( Amer) > 60 Est GFR (Non-Af Amer) > 60 Glucose 175 H Calcium 8.5 Blood Type Antibody Screen Qualifiers [place] BEING DISCHARGED WITH ANY OF THE FOLLOWING DIAGNOSIS?: No Plan Discharge Plan: Patient is discharged to home and will follow up with primary care physician in 1-2 weeks. She is instructed to not use any nonsteroidals. Time Spent: Less than 30 Minutes
[2017-04-02 18:14] VITALS: BP 140/78
== END 2017-04-02 18:58 | disposition home or self-care (01) | DRG 812 ==
LOC: ER 17:17 → EH 19:52 → UNDOADMIN 19:59 → 3N 21:45
PROVIDERS: ADMIT Internal Medicine; ATTEND Internal Medicine
PROC: 30233N1 Transfusion of Nonautologous Red Blood Cells into Peripheral Vein, Percutaneous Approach (ICD-10-PCS; 2017-04-01)
PROC: 0DB68ZX Excision of Stomach, Via Natural or Artificial Opening Endoscopic, Diagnostic (ICD-10-PCS; principal; 2017-04-01 11:30)
DX: D64.9 Anemia, unspecified (principal); R04.0 Epistaxis; K29.70 Gastritis, unspecified, without bleeding; E11.65 Type 2 diabetes mellitus with hyperglycemia; K21.9 Gastro-esophageal reflux disease without esophagitis; K44.9 Diaphragmatic hernia without obstruction or gangrene; E78.5 Hyperlipidemia, unspecified; I25.10 Atherosclerotic heart disease of native coronary artery without angina pectoris; I10 Essential (primary) hypertension; F32.9 Major depressive disorder, single episode, unspecified; Z86.73 Personal history of transient ischemic attack (TIA), and cerebral infarction without residual deficits; Z79.82 Long term (current) use of aspirin; Z79.01 Long term (current) use of anticoagulants; Z79.84 Long term (current) use of oral hypoglycemic drugs; Z79.51 Long term (current) use of inhaled steroids; Z79.899 Other long term (current) drug therapy
CPT/HCPCS: 36415; 36430; 43239; 80048; 80053; 81001; 82272; 82962; 85025; 85610; 85730; 86850; 86900; 86901; 86920; 87086; 87088; 88305; 93005; 93010; 99285; J0171; J1200; J1610; J1644; J1815; J2250; J2310; J2405; J3010; J3490; J7030; P9016; S0164

== ENCOUNTER 2018-06-30 17:22 | Emergency (ER) | payer MEDICARE, OTHER ==
--- NOTE | 2018-06-30 18:24 | ER Document Report ---
ED Medical Screen (RME) - General Chief Complaint: Slurred Speech Stated Complaint: SLURRED SPEECH Time Seen by Provider: 06/30/18 18:18 Mode of Arrival: Ambulatory Information source: Relative Notes: This is a 67-year-old female with coronary artery disease (OR in the past), CVA , hypertension, diabetes who is brought into the emergency room with 3-4 day history of an expressive and receptive aphasia, confusion. Patient daughter who lives with the patient states that she noticed 3-4 days ago. Primary CARE physician: Bettie Reagan TRAVEL OUTSIDE OF THE [place] IN LAST 30 DAYS: No - Related Data Allergies/Adverse Reactions: No Known Allergies Allergy (Verified 06/30/18 17:24) Past Medical History - Social History Chew tobacco use (# tins/day): No Frequency of alcohol use: None Drug Abuse: None - Past Medical History Cardiac Medical History: Reports: Hx Hypercholesterolemia, Hx Hypertension Neurological Medical History: Reports: Hx Cerebrovascular Accident. Denies: Hx Seizures Endocrine Medical History: Reports: Hx Diabetes Mellitus Type 2 Renal/ Medical History: Denies: Hx Peritoneal Dialysis Psychiatric Medical History: Reports: Hx Depression Past Surgical History: Reports: Hx Hysterectomy, Hx Tubal Ligation - Immunizations Hx Diphtheria, Pertussis, Tetanus Vaccination: Yes Physical Exam - Vital signs Vitals: Temp Pulse BP Pulse Ox 98.8 F 108 H 154/107 H 99 06/30/18 17:44 06/30/18 17:44 06/30/18 17:44 06/30/18 17:44 Course - Vital Signs Vital signs: Temp Pulse Resp BP Pulse Ox 98.8 F 108 H 154/107 H 99 06/30/18 17:44 06/30/18 17:44 06/30/18 17:44 06/30/18 17:44
--- NOTE | 2018-06-30 18:36 | RADIOLOGY REPORT (SQ) ---
EXAM DESCRIPTION: CHEST 2 VIEWS COMPLETED DATE/TIME: 06/30/2018 6:26 pm REASON FOR STUDY: stroke COMPARISON: 07/21/2016 EXAM PARAMETERS: NUMBER OF VIEWS: two views TECHNIQUE: Digital Frontal and Lateral radiographic views of the chest acquired. RADIATION DOSE: NA LIMITATIONS: none FINDINGS: LUNGS AND PLEURA: No opacities, masses or pneumothorax. No pleural effusion. MEDIASTINUM AND HILAR STRUCTURES: No masses or contour abnormalities. HEART AND VASCULAR STRUCTURES: Heart normal size. No evidence for failure. BONES: No acute findings. HARDWARE: None in the chest. OTHER: No other significant finding. IMPRESSION: NO ACUTE RADIOGRAPHIC FINDING IN THE CHEST. TECHNICAL DOCUMENTATION: JOB ID: [id number] [employer]- All Rights Reserved Reading location - IP/workstation name: [email or web address]
--- NOTE | 2018-06-30 18:50 | RADIOLOGY REPORT (SQ) ---
EXAM DESCRIPTION: CT HEAD WITHOUT COMPLETED DATE/TIME: 06/30/2018 6:34 pm REASON FOR STUDY: aphasia, confusion COMPARISON: July 2016 TECHNIQUE: Axial images acquired through the brain without intravenous contrast. Images reviewed wi th bone, brain and subdural windows. Additional sagittal and coronal reconstructions were generated. Images stored on PACS. All CT scanners at this facility use dose modulation, iterative reconstruction, and/or weight based d osing when appropriate to reduce radiation dose to as low as reasonably achievable (ALARA). [facility]: Dose Right [facility]: CareDose [facility]: Dose Right [facility]: Teradose 4D [facility]: [employer] RADIATION DOSE: mGy. LIMITATIONS: None. FINDINGS: VENTRICLES: Prominent. CEREBRUM: No masses. No hemorrhage. No midline shift. Areas of low density in the white matter mos t likely due to chronic micro-vascular ischemic change. The previously described chronic appearing i nfarcts in the basal ganglia bilaterally and right external capsule appears stable. There is a fairl y well demarcated relative low density area in the left parietal region suspicious for an evolving ar ea of cerebral infarction. Clinical correlation is recommended. CEREBELLUM: No masses. No hemorrhage. No alteration of density. No evidence for acute infarction. EXTRAAXIAL SPACES: Mild age-related involutional change. No fluid collections. No masses. ORBITS AND GLOBE: No intra- or extraconal masses. Normal contour of globe without masses. CALVARIUM: No fracture. PARANASAL SINUSES: No fluid or mucosal thickening. SOFT TISSUES: No mass or hematoma. OTHER: No other significant finding. IMPRESSION: MILD CHRONIC CHANGES OF ATROPHY AND MICROVASCULAR ISCHEMIA. The previously described ch ronic appearing infarcts in the basal ganglia bilaterally and right external capsule appears stable. There is a fairly well demarcated relative low density area in the left parietal region suspicious f or an evolving area of cerebral infarction. Clinical correlation is recommended. MRI may be of valu e for further evaluation if clinically warranted. Other findings as noted above EVIDENCE OF ACUTE STROKE: NO. TECHNICAL DOCUMENTATION: JOB ID: [id number] Quality ID # [id number]: Final reports with documentation of one or more dose reduction techniques (e.g., Au tomated exposure control, adjustment of the mA and/or kV according to patient size, use of iterative reconstruction technique) 2010 [employer]- All Rights Reserved Reading location - IP/workstation name: [email or web address]
[2018-06-30 19:22] LABS: ABSOLUTE BASOPHILS # (AUTO) 0.1 10^3/uL (0.0-0.2); ABSOLUTE EOSINOPHILS # (AUTO) 0.1 10^3/uL (0.0-0.6); ABSOLUTE LYMPHOCYTES (AUTO) 2.4 10^3/uL (0.5-4.7); ABSOLUTE MONOCYTES (AUTO) 0.4 10^3/uL (0.1-1.4); ABSOLUTE NEUT (AUTO) 6.7 10^3/uL (1.7-8.2); BASOPHILS % (AUTO) 0.8 % (0-2); EOSINOPHILS % (AUTO) 1.4 % (0-6); HEMATOCRIT 45.6 % (36.0-47.0); HEMOGLOBIN 15.5 g/dL (12.0-15.5); MEAN CORPUSCULAR HGB CONC 33.9 g/dL (32.0-36.0); MEAN CORPUSCULAR VOLUME 85 fl (80-97); MONOCYTES % (AUTO) 3.8 % (3-13); PLATELET COUNT 323 10^3/uL (150-450); RED BLOOD COUNT 5.34 10^6/uL (3.72-5.28); RED CELL DISTRIBUTION WIDTH 13.4 % (11.5-14.0); TOTAL CELLS COUNTED % (AUTO) 100 %; WHITE BLOOD COUNT 9.7 10^3/uL (4.0-10.5)
--- NOTE | 2018-06-30 19:22 | ER Document Report ---
ED General - General Chief Complaint: Slurred Speech Stated Complaint: SLURRED SPEECH Time Seen by Provider: 06/30/18 18:18 Mode of Arrival: Ambulatory Information source: Relative, [facility] Records Cannot obtain history due to: Altered mental status Notes: 67-year-old female with type 2 diabetes, hypertension, previous CVA presents to the ED with increased confusion, dysarthria, intermittent aphasia for the past 4 days. Patient is disoriented during encounter and only able to answer simple yes or no questions. History was obtained from patients daughter. She is not currently on any medications and has not seen her primary care provider in many years. Patient's daughter denies any sherry-paralysis, facial drooping. Patient not following commands, cannot answer questions although she is attempting to speak. Nods no when asked if she was in pain. TRAVEL OUTSIDE OF THE [place] IN LAST 30 DAYS: No - HPI Onset: Other Onset/Duration: Gradual, Worse Similar symptoms previously: Yes Recently seen / treated by doctor: No - Related Data Allergies/Adverse Reactions: No Known Allergies Allergy (Verified 06/30/18 17:24) Past Medical History - General Information source: Relative, [facility] Records - Social History Smoking Status: Never Smoker Chew tobacco use (# tins/day): No Frequency of alcohol use: None Drug Abuse: None Lives with: Family Family History: DM, Hypertension Patient has suicidal ideation: No Patient has homicidal ideation: No - Past Medical History Cardiac Medical History: Reports: Hx Hypercholesterolemia, Hx Hypertension Neurological Medical History: Reports: Hx Cerebrovascular Accident. Denies: Hx Seizures Endocrine Medical History: Reports: Hx Diabetes Mellitus Type 2 Renal/ Medical History: Denies: Hx Peritoneal Dialysis Psychiatric Medical History: Reports: Hx Depression Past Surgical History: Reports: Hx Hysterectomy, Hx Tubal Ligation - Immunizations Hx Diphtheria, Pertussis, Tetanus Vaccination: Yes Review of Systems - Review of Systems -: Yes ROS unobtainable due to patient's medical condition Physical Exam - Vital signs Vitals: Temp Pulse BP Pulse Ox 98.8 F 108 H 154/107 H 99 06/30/18 17:44 06/30/18 17:44 06/30/18 17:44 06/30/18 17:44 Interpretation: Hypertensive, Tachycardic - Notes Notes: PHYSICAL EXAMINATION: GENERAL: Well-appearing, confused, not following directions. HEAD: Atraumatic, normocephalic. EYES: Pupils equal round and reactive to light, extraocular movements intact, conjunctiva are normal. ENT: Nares patent, oropharynx clear without exudates. Moist mucous membranes. NECK: Normal range of motion, supple without lymphadenopathy LUNGS: Breath sounds clear to auscultation bilaterally and equal. No wheezes rales or rhonchi. HEART: Regular rate and rhythm without murmurs ABDOMEN: Soft, nontender, nondistended abdomen. No guarding, no rebound. No masses appreciated. Female : deferred Musculoskeletal: Normal range of motion, no pitting or edema. No cyanosis. NEUROLOGICAL: Cranial nerves grossly intact. Patient with significant dysarthria intermittent aphasia. NIH 19. She will not follow directions when asked to move her arms or legs but she did perform cranial nerve testing without difficulty. PSYCH: mild agitation SKIN: Warm, Dry, normal turgor, no rashes or lesions noted. Course - Re-evaluation Re-evalutation: Laboratory 06/30/18 06/30/18 06/30/18 18:47 19:03 19:03 WBC 9.7 RBC 5.34 H Hgb 15.5 Hct 45.6 MCV 85 MCH 29.0 MCHC 33.9 RDW 13.4 Plt Count 323 Seg Neutrophils % 69.0 Lymphocytes % 25.0 Monocytes % 3.8 Eosinophils % 1.4 Basophils % 0.8 Absolute Neutrophils 6.7 Absolute Lymphocytes 2.4 Absolute Monocytes 0.4 Absolute Eosinophils 0.1 Absolute Basophils 0.1 PT INR APTT Sodium 136.2 L Potassium 4.9 Chloride 96 L Carbon Dioxide 25 Anion Gap 15 BUN 16 Creatinine 0.74 Est GFR ( Amer) > 60 Est GFR (Non-Af Amer) > 60 Glucose 323 H POC Glucose 317 H Calcium 10.0 Total Bilirubin 0.8 Direct Bilirubin 0.3 Neonat Total Bilirubin Not Reportable Neonat Direct Bilirubin Not Reportable Neonat Indirect Bili Not Reportable AST 17 ALT 21 Alkaline Phosphatase 92 Creatine Kinase 22 L CK-MB (CK-2) Troponin I Total Protein 7.6 Albumin 4.3 Urine Color Urine Appearance Urine pH Ur Specific [place] Urine Protein Urine Glucose (UA) Urine Ketones Urine Blood Urine Nitrite Urine Bilirubin Urine Urobilinogen Ur Leukocyte Esterase Urine WBC (Auto) Urine RBC (Auto) Squamous Epi Cells Auto Urine Ascorbic Acid 06/30/18 06/30/18 06/30/18 19:03 19:03 20:40 WBC RBC Hgb Hct MCV MCH MCHC RDW Plt Count Seg Neutrophils % Lymphocytes % Monocytes % Eosinophils % Basophils % Absolute Neutrophils Absolute Lymphocytes Absolute Monocytes Absolute Eosinophils Absolute Basophils PT 13.3 INR 0.96 APTT 25.5 Sodium Potassium Chloride Carbon Dioxide Anion Gap BUN Creatinine Est GFR ( Amer) Est GFR (Non-Af Amer) Glucose POC Glucose Calcium Total Bilirubin Direct Bilirubin Neonat Total Bilirubin Neonat Direct Bilirubin Neonat Indirect Bili AST ALT Alkaline Phosphatase Creatine Kinase CK-MB (CK-2) 0.36 Troponin I 0.013 Total Protein Albumin Urine Color YELLOW Urine Appearance CLEAR Urine pH 6.0 Ur Specific [place] 1.057 Urine Protein NEGATIVE Urine Glucose (UA) >=500 H Urine Ketones 80 H Urine Blood NEGATIVE Urine Nitrite NEGATIVE Urine Bilirubin NEGATIVE Urine Urobilinogen NEGATIVE Ur Leukocyte Esterase NEGATIVE Urine WBC (Auto) 1 Urine RBC (Auto) 0 Squamous Epi Cells Auto <1 Urine Ascorbic Acid NEGATIVE Chest X-Ray 06/30/18 18:19 IMPRESSION: NO ACUTE RADIOGRAPHIC FINDING IN THE CHEST. Head CT 06/30/18 18:19 IMPRESSION: MILD CHRONIC CHANGES OF ATROPHY AND MICROVASCULAR ISCHEMIA. The previously described chronic appearing infarcts in the basal ganglia bilaterally and right external capsule appears stable. There is a fairly well demarcated relative low density area in the left parietal region suspicious for an evolving area of cerebral infarction. Clinical correlation is recommended. MRI may be of value for further evaluation if clinically warranted. Other findings as noted above EVIDENCE OF ACUTE STROKE: NO. Head CTA 06/30/18 19:14 IMPRESSION: 1. No evidence of stenosis or aneurysm of the [place]. 2. Chronic microvascular ischemic changes. 3. Likely evolving infarction in the left posterior parietal area. Neck CTA 06/30/18 19:14 IMPRESSION: NORMAL CTA OF THE EXTRA-CRANIAL CAROTID AND VERTEBRAL ARTERIES. 06/30/18 21:30 67-year-old female with hypertension, hyperlipidemia, type 2 diabetes, previous CVA presents with her daughter who is concerned for increasing confusion, slurred speech, aphasia that started 4 days prior to arrival. Upon arrival vitals reviewed and patient is hypertensive, tachycardic. Patient's systolic blood pressure is less than 180s so no aggressive blood pressure control was performed. Neuro exam was performed and patient is able to perform testing for cranial nerves but will not move her upper or lower extremities when asked. She is unable to answer questions although she attempts to. NIH is 19 secondary to patient's inability to follow commands. CBC shows no leukocytosis or anemia. CMP does show hyperglycemia without evidence of DKA. Cardiac enzymes are within normal limits. Urinalysis does show glucose but no evidence of infection. EKG does show the patient to be in normal sinus rhythm. CT of the head was obtained and showed chronic appearing infarcts of the basal ganglia and right external capsule. There is a concern for a likely involving infarct of the left posterior parietal area. aspiri administered. [facility] contacted for transfer. Patient was accepted by Dr. Granado hospitalist. She will be admitted to the stroke floor. Daughter is aware and in agreement of transfer. 06/30/18 21:32 07/01/18 02:14 - Vital Signs Vital signs: Temp Pulse Resp BP Pulse Ox 98.8 F 110 H 14 202/121 H 96 07/01/18 01:08 06/30/18 19:58 07/01/18 00:51 07/01/18 00:52 07/01/18 00:51 - Laboratory Result Diagrams: 06/30/18 19:03 06/30/18 19:03 Laboratory results interpreted by me: 06/30/18 06/30/18 06/30/18 18:47 19:03 19:03 RBC 5.34 H Sodium 136.2 L Chloride 96 L Glucose 323 H POC Glucose 317 H Creatine Kinase 22 L Urine Glucose (UA) Urine Ketones 06/30/18 20:40 RBC Sodium Chloride Glucose POC Glucose Creatine Kinase Urine Glucose (UA) >=500 H Urine Ketones 80 H - Diagnostic Test Radiology reviewed: Image reviewed, Reports reviewed - EKG Interpretation by Me EKG shows normal: Sinus rhythm Rate: Normal Rhythm: NSR, PVC's When compared to previous EKG there are: Previous EKG unavailable Discharge - Discharge Clinical Impression: Infarction of parietal lobe, History of CVA in adulthood, Confusion, Noncompliance with medication regimen Type 2 diabetes mellitus with hyperglycemia Qualifiers: Diabetes mellitus termination clerk insulin use: without termination clerk use Qualified Code(s ): E11.65 - Type 2 diabetes mellitus with hyperglycemia Hypertension Qualifiers: Hypertension type: unspecified Qualified Code(s): I10 - Essential (primary) hypertension Condition: Fair Disposition: REPLACED BY [facility] ED NIH Stroke Scale - NIH Stroke Scale *: 1. NIH scale should be completed with appropriate accompanying assessment tools. *: 2. The NIH should reflect what the patient is capable of doing and should not be coached by the clinician. 1a. Level of Consciousness: 0=Alert;keenly responsive -: 1=Drowsy -: 2=Obtunded -: 3=Coma/unresponsive or reflex to noxious stimuli. 1a. Responses: 0 1b. Orientation Questions: a. What month is it? -: b. How old are you? -: 0=Answers both questions correctly. -: 1=Answers one question correctly or patient is intubated or has orotracheal trauma. -: 2=Answers neither question correctly. 1b. Responses: 2 1c. Response to commands: a. Open and close eyes? -: b. Technical Assistant and release hand? -: Credit is given despite weakness. Demonstration of task is permitted. Substitute command if hands cannot be used. -: 0=Performs both tasks correctly -: 1=Performs one task correctly -: 2=Performs neither task correctly 1c. Responses: 0 2. Gaze: Establish eye contact and instruct patient to "Follow my finger" -: 0=Normal -: 1=Partial gaze palsy. Gaze is abnormal in one or both eyes, but where forced deviation or total gaze paresis is not present. -: 2=Forced deviation or total gaze paresis. 2. Responses: 0 3. Visual [place]: Sees fingers in all four quadrants. -: 0=No visual loss. -: 1=Partial hemianopsia. -: 2=Complete hemianopsia. -: 3=Bilateral hemianopsia (including Cortical blindness) 3. Responses: 1 4. Facial Movement: Instruct patient to: -: a. Show me your teeth -: b. Raise your eyebrows -: c. Close your eyes -: d. Smile -: 0=Normal symmetrical movement -: 1=Minor paralysis (flattened nasolabial fold, asymmetry on smiling). -: 2=Partial paralysis (total or near total paralysis of lower face). -: 3=Complete paralysis of upper and lower face 4. Responses: 0 5. Motor functions (left arm): Alternate sides and extend each arm with palms down (90 degrees if sitting or 45 degrees for supine). -: 0=No drift;limb holds for full 10 seconds. -: 1=Drift; limb holds but drifts down before full 10 seconds, but does not hit bed. -: 2=Some effort against gravity; limb cannot get to or maintain position. -: 3=No effort against gravity; limb falls. -: 4=No movement. -: UN=Amputation, joint fusion, explain in comments. 5. Responses (left arm): 2 5. Motor Functions (right arm): Alternate sides and extend each arm with palms down (90 degrees if sitting or 45 degrees for supine). -: 0=No drift;limb holds for full 10 seconds. -: 1=Drift; limb holds but drifts down before full 10 seconds, but does not hit bed. -: 2=Some effort against gravity; limb cannot get to or maintain position. -: 3=No effort against gravity; limb falls. -: 4=No movement. -: UN=Amputation, joint fusion, explain in comments. 5. Responses (right arm): 2 6. Motor Functions (left leg): With patient lying supine, alternate sides and extend each leg (30 degrees always while supine). -: 0=No drift, leg holds position for full 5 seconds -: 1=Drift; leg falls before full 5 seconds but does not hit bed. -: 2=Some effort against gravity, leg falls to bed but some effort against gravity. -: 3=No effort against gravity, leg falls to bed immediately. -: 4=No movement. -: UN=Amputation, joint fusion; explain in comments. 6. Responses (left leg): 2 6. Motor Functions (right leg): With patient lying supine, alternate sides and extend each leg (30 degrees always while supine). -: 0=No drift, leg holds position for full 5 seconds -: 1=Drift; leg falls before full 5 seconds but does not hit bed. -: 2=Some effort against gravity, leg falls to bed but some effort against gravity. -: 3=No effort against gravity, leg falls to bed immediately. -: 4=No movement. -: UN=Amputation, joint fusion; explain in comments. 6. Responses (right leg): 2 7. Limb Ataxia: With eyes open instruct patient to: -: a. "Touch your finger to your nose". -: b. "Touch your heel to your guerra" -: 0=Absent -: 1=Present in one limb. -: 2=Present in two limbs. -: UN=Amputation or joint fusion; explain in comments. 7. Responses: 2 8. Sensory: Test sensation using pinprick or noxious stimuli. Test as many body parts as possible. -: 0=Normal;no sensory loss -: 1=Mile to moderate sensory loss (patient feels pin prick but is less sharp on affected side). -: 2=Severe or total sensory loss. 8. Responses: 1 9. Best Language: Instruct patient to: -: a. "Describe what you see in this picture." -: b. "Name the items in this picture." -: c. "Read these sentences." -: 0=No aphasia, normal -: 1=Mild to moderate aphasia. -: 2=Severe aphasia -: 3=Mute, global aphasia, no usable speech or auditory comprehension. 9. Responses: 2 10. Articulation, Dysarthia: Instruct patient to: -: "Read these words" or "Repeat these words" -: 0=Normal -: 1=Mild to moderate; patient may slur some words but can be understood without difficulty. -: 2=Severe; patients speech so slurred as to be unintelligible in the absence of dysphasia. -: UN=Intubated or other physical barrier, explain in comments. 10. Responses: 2 11. Extinction or inattention: 0=No abnormality -: 1= Visual, tactile, auditory, spatial, or personal inattention or extinction to bilateral simulation in one or the sensory modalities. -: 2=Profound sherry-inattention or sherry-inattention to more than one modality; does not recognize own hand. 11. Responses: 1 Total Score: 19
[2018-06-30 19:31] LABS: INTERNATIONAL RATION (INR) 0.96; PARTIAL THROMBOPLASTIN TIME 25.5 SEC (23.5-35.8); PROTHROMBIN TIME 13.3 SEC (11.4-15.4)
[2018-06-30] MEDS ORDERED: ASPIRIN 81 MG TABLET, CHEWABLE PO ONE (19:40)
[2018-06-30 19:45] LABS: ALANINE AMINOTRANSFERASE 21 U/L (9-52); ALBUMIN 4.3 g/dL (3.5-5.0); ALKALINE PHOSPHATASE 92 U/L (38-126); ANION GAP 15 (5-19); ASPARTATE AMINO TRANSFERASE 17 U/L (14-36); BILIRUBIN,DIRECT 0.3 mg/dL (0.0-0.4); BILIRUBIN,TOTAL 0.8 mg/dL (0.2-1.3); BLOOD UREA NITROGEN 16 mg/dL (7-20); CARBON DIOXIDE 25 mmol/L (22-30); CHLORIDE 96 mmol/L (98-107); CREATINE KINASE 22 U/L (30-135); GLUCOSE 323 mg/dL (75-110); POTASSIUM 4.9 mmol/L (3.6-5.0); SODIUM 136.2 mmol/L (137-145); TOTAL PROTEIN 7.6 g/dL (6.3-8.2)
--- NOTE | 2018-06-30 19:50 | RADIOLOGY REPORT (SQ) ---
EXAM DESCRIPTION: CTA NECK COMPLETED DATE/TIME: 06/30/2018 7:40 pm REASON FOR STUDY: stroke COMPARISON: None. TECHNIQUE: Axial dynamic scanning technique with dynamic contrast enhancement through the extra-supervisor scrap preparation nial carotid and vertebral arteries. Multiplanar reconstruction. 3-D MIPS and Volume-rendered imag es acquired at the workstation and saved to PACS. Images are reviewed in soft tissue, bone, lung w indows. All CT scanners at this facility use dose modulation, iterative reconstruction, and/or weight based d osing when appropriate to reduce radiation dose to as low as reasonably achievable (ALARA). [facility]: Dose Right [facility]: CareDose [facility]: Dose Right [facility]: Teradose 4D [facility]: QCoefficient CONTRAST TYPE AND DOSE: contrast/concentration: Isovue 350.00 mg/ml; Total Contrast Delivered: 70.0 ml; Total Saline Delivered: 75.0 ml RENAL FUNCTION: Testing waived by the emergency room physician. LIMITATIONS: None. FINDINGS: AORTIC ARCH: Normal three-vessel origin. Bilateral subclavian arteries are patent. No d issection. RIGHT CAROTIDS: Patent common, internal and external carotid arteries without suggestion of significa nt stenosis or irregular plaque. No dissection. RIGHT VERTEBRAL: Patent. No dissection. LEFT CAROTIDS: Patent common, internal and external carotid arteries without suggestion of significan t stenosis or irregular plaque. No dissection. LEFT VERTEBRAL: Patent. No dissection. OTHER: No other significant finding. OTHER: 3-D reconstructions confirm findings. IMPRESSION: NORMAL CTA OF THE EXTRA-CRANIAL CAROTID AND VERTEBRAL ARTERIES. COMMENT: Quality ID #[id number]: Measurements of distal internal carotid diameter were used as the denomina tor for stenosis measurement. TECHNICAL DOCUMENTATION: JOB ID: [id number] Quality ID # [id number]: Final reports with documentation of one or more dose reduction techniques (e.g., Au tomated exposure control, adjustment of the mA and/or kV according to patient size, use of iterative reconstruction technique) 2010 [employer]- All Rights Reserved Reading location - IP/workstation name: [email or web address]
[2018-06-30 19:55] LABS: CREATINE KINASE MB 0.36 ng/mL (<4.55)
--- NOTE | 2018-06-30 19:58 | RADIOLOGY REPORT (SQ) ---
EXAM DESCRIPTION: CTA HEAD COMPLETED DATE/TIME: 06/30/2018 7:40 pm REASON FOR STUDY: stroke COMPARISON: None. TECHNIQUE: Post IV contrast scanning, thin section axial imaging through the brain to evaluate the a rterial structures. Source and MIP images are saved and reviewed on PACS. Advanced 3D imaging as volume-rendering, MIPs, SSD performed? yes All CT scanners at this facility use dose modulation, iterative reconstruction, and/or weight based d osing when appropriate to reduce radiation dose to as low as reasonably achievable (ALARA). [facility]: Dose Right [facility]: CareDose [facility]: Dose Right [facility]: Teradose 4D [facility]: MynewMD CONTRAST TYPE AND DOSE: 70 mL Omnipaque 350- low osmolar. RENAL FUNCTION: Waived by the emergency room physician. LIMITATIONS: None. FINDINGS: [place]: The anterior, middle, posterior cerebral arteries are all patent. No ev idence of aneurysm or focal stenosis. POSTERIOR CIRCULATION: The distal vertebral arteries are patent as is the basilar artery. No aneurysm . BRAIN: No gross enhancing lesions. Lacunar infarcts in the basal ganglia bilaterally. Areas of decr eased attenuation in the white matter. There is an area decreased attenuation and loss of howard/ whit e differentiation in the left posterior parietal region. BONES: Intact as visualized. SINUSES: No fluid or mucosal thickening. OTHER: No other significant finding. IMPRESSION: 1. No evidence of stenosis or aneurysm of the [place]. 2. Chronic microvascular ischemic changes. 3. Likely evolving infarction in the left posterior parietal area. TECHNICAL DOCUMENTATION: JOB ID: [id number] Quality ID # [id number]: Final reports with documentation of one or more dose reduction techniques (e.g., Au tomated exposure control, adjustment of the mA and/or kV according to patient size, use of iterative reconstruction technique) 2010 [employer]- All Rights Reserved Reading location - IP/workstation name: [email or web address]
[2018-06-30 19:59] LABS: TROPONIN I 0.013 ng/mL
[2018-06-30 20:59] LABS: APPEARANCE,URINE CLEAR; BILIRUBIN,URINE NEGATIVE (NEGATIVE); COLOR,URINE YELLOW; GLUCOSE, URINE >=500 mg/dL (NEGATIVE); KETONES,URINE 80 mg/dL (NEGATIVE); LEUKOCYTE ESTERASE,URINE NEGATIVE (NEGATIVE); NITRITE,URINE NEGATIVE (NEGATIVE); PROTEIN,URINE NEGATIVE (NEGATIVE); URINE SPECIFIC GRAVITY 1.057; UROBILINOGEN,URINE NEGATIVE mg/dL (<2.0)
--- NOTE | 2018-06-30 22:16 | EKG REPORT ---
SEVERITY:- ABNORMAL ECG - SINUS RHYTHM VENTRICULAR PREMATURE COMPLEX LEFT ATRIAL ABNORMALITY PROBABLE LEFT VENTRICULAR HYPERTROPHY : Confirmed by: Lynda Garcia 30-Jun-2018 22:16:08
[2018-07-01 00:55] VITALS: BP 202/121
--- NOTE | 2018-07-01 00:57 | ER Document Report ---
Doctor's Note Notes: 07/01/18 00:56 Transport is here at this time. Vital signs are within normal limits. Patient stable for transfer at this time.
== END 2018-07-01 01:11 | disposition short-term general hospital (02) ==
LOC: ER 17:22
DX: I63.8 Other cerebral infarction (principal); R47.1 Dysarthria and anarthria; R29.719 NIHSS score 19; R47.81 Slurred speech; R41.0 Disorientation, unspecified; E11.65 Type 2 diabetes mellitus with hyperglycemia; I10 Essential (primary) hypertension; I25.10 Atherosclerotic heart disease of native coronary artery without angina pectoris; E78.00 Pure hypercholesterolemia, unspecified; I25.2 Old myocardial infarction; Z86.73 Personal history of transient ischemic attack (TIA), and cerebral infarction without residual deficits; Z90.710 Acquired absence of both cervix and uterus; Z91.14 Patient's other noncompliance with medication regimen
CPT/HCPCS: 93005; 99285; 51701; 36415; 82553; 82962; 82550; 85025; 85610; 85730; 80053; 81001; 84484; 71046; 70450; 70496; 70498; 93010; A9270

== ENCOUNTER 2018-10-21 06:57 | Day surgery (SDC) | payer MEDICARE, OTHER ==
[~2018-10-21 06:57] MED LIST: KETOROLAC TROMETHAMINE 0.45% 4 DROP/0.4 ML DROPERETTE OS PRN
[2018-10-21] MEDS: CYCLOPENTOLATE 0.2%/PHENYLEPHRINE 1% OPH SOLN 2 ML OS PRN ×3 (07:04→07:24)
[2018-10-21] MEDS: TROPICAMIDE 1% OPH SOLN 3 ML OS PRN ×3 (07:04→07:24)
[2018-10-21] MEDS: BESIFLOXACIN HCL 0.6% OPH SUSP 5 ML BOTTLE OS PRN ×4 (07:04→07:57)
[2018-10-21] MEDS: TETRACAINE HCL 0.5% OPH SOLN 4 ML OS PRN ×3 (07:05→07:36)
[2018-10-21] MEDS ORDERED: EPINEPHRINE INJ/PF 1 MG/1 ML AMPULE ONE (07:08)
[2018-10-21] MEDS ORDERED: CHONDR SU A NA/HYALUR INTRAOC KIT (SURGICARE) ONE (07:09)
[2018-10-21] MEDS ORDERED: LIDOCAINE 1% INJ-PF (10 MG/ML) 30 ML SDV ONE (07:09)
[2018-10-21] MEDS ORDERED: MIDAZOLAM 2 MG/2 ML INJ ONE (07:13)
[2018-10-21] MEDS ORDERED: LIDOCAINE 1%/PHENYLEPHRINE 1.5% 1 ML VIAL ONE (08:11)
--- NOTE | 2018-10-22 08:02 | [facility] OPERATIVE REPORT E ---
[facility] Operative Report NAME: LENA OWUSU AGE: 68Y DATE OF SURGERY: 10/21/2018 ROOM: PREOPERATIVE DIAGNOSIS: CATARACT, LEFT EYE. POSTOPERATIVE DIAGNOSIS: CATARACT, LEFT EYE. OPERATION: Cataract extraction with insertion of an IOL of the left eye. SURGEON: MELBA BARNES M.D. ANESTHESIA: Topical. PROCEDURE: After obtaining appropriate consent, the patient's left eye was prepped and draped in sterile fashion as well as the surgeon in a sterile manner and cataract surgery was started. First a paracentesis blade was used to make a side-port incision. Viscoelastic was used to inflate the anterior chamber. Next a 2.4 mm incision was made with a 2.4 mm blade, clear corneal temporally. A continuous capsulorrhexis was made using a cystotome and Utrata forceps. Following this hydrodissection was carried out to make the lens fully loose and mobile and it was rotated 90 degrees. Following this, a xrpogc-rbi-loaiqll technique was used to phacoemulsify the lens with a CDE of 9.65. The remaining cortex was removed with irrigation/aspiration. Provisc was instilled into the capsular bag to inflate the bag. A SN60WF, 28.0 diopter lens was placed. The remaining viscoelastic material was removed with irrigation/aspiration. Following this, the incision was found to be watertight. Besivance was instilled into the eye and a protective shield was placed over the eye. The patient returned to the postoperative recovery in stable condition. DICTATING PHYSICIAN: MELBA BARNES M.D. [id number] PHY#: [id number] ID: [id number] JOB#: [id number] ACCT: [id number] cc:MELBA BARNES M.D. >
--- NOTE | 2018-10-22 08:07 | [facility] DISCHARGE SUMMARY E ---
[facility] Discharge Summary NAME: LENA OWUSU AGE: 68Y ADMITTED: 10/21/2018 DISCHARGED: 10/21/2018 HISTORY: This is a 68-year-old patient who underwent cataract extraction of the left eye. DIAGNOSIS: Cataract, left eye. HOSPITAL COURSE: He underwent surgery because he was having difficulty driving secondary to glare from headlights. DISCHARGE INSTRUCTIONS: She should be on a regular diet. No bending at the waist. No heavy lifting. She should use her Besivance, Ilevro, and Durezol at 3 p.m. and 8 p.m. and sleep with a rigid shield, and I will see her for a one day postoperative tomorrow. DICTATING PHYSICIAN: MELBA BARNES M.D. [id number] PHY#: [id number] ID: [id number] JOB#: [id number] ACCT: [id number] cc:MELBA BARNES M.D. >
== END 2018-10-21 08:38 | disposition home or self-care (01) ==
LOC: SC 06:57
PROVIDERS: ATTEND Internal Medicine
DX: H25.13 Age-related nuclear cataract, bilateral (principal); I63.412 Cerebral infarction due to embolism of left middle cerebral artery; H53.40 Unspecified visual field defects; H01.002 Unspecified blepharitis right lower eyelid; H01.005 Unspecified blepharitis left lower eyelid; E11.9 Type 2 diabetes mellitus without complications; I10 Essential (primary) hypertension; E78.00 Pure hypercholesterolemia, unspecified; J45.909 Unspecified asthma, uncomplicated; Z86.73 Personal history of transient ischemic attack (TIA), and cerebral infarction without residual deficits; Z87.891 Personal history of nicotine dependence; I25.2 Old myocardial infarction
CPT/HCPCS: 66984; 82962; V2632; J2250; J3490 ×3; A9270; J0171; J2370

== ENCOUNTER 2018-11-11 06:22 | Day surgery (SDC) | payer MEDICARE, OTHER ==
[~2018-11-11 06:22] MED LIST changes: +KETOROLAC TROMETHAMINE 0.45% 4 DROP/0.4 ML DROPERETTE OD PRN; -KETOROLAC TROMETHAMINE 0.45% 4 DROP/0.4 ML DROPERETTE OS PRN
[2018-11-11] MEDS: TROPICAMIDE 1% OPH SOLN 3 ML OD PRN ×3 (06:47→07:07)
[2018-11-11] MEDS: TETRACAINE HCL 0.5% OPH SOLN 4 ML OD PRN ×4 (06:47→07:33)
[2018-11-11] MEDS: CYCLOPENTOLATE 0.2%/PHENYLEPHRINE 1% OPH SOLN 2 ML OD PRN ×3 (06:47→07:07)
[2018-11-11] MEDS: BESIFLOXACIN HCL 0.6% OPH SUSP 5 ML BOTTLE OD PRN ×4 (06:48→07:55)
[2018-11-11] MEDS ORDERED: MIDAZOLAM 2 MG/2 ML INJ ONE ×2 (06:57→07:21)
[2018-11-11] MEDS: CHONDR SU A NA/HYALUR INTRAOC KIT (SURGICARE) ONE ×2 (07:42)
[2018-11-11] MEDS: LIDOCAINE 1% INJ-PF (10 MG/ML) 30 ML SDV ONE ×2 (07:42)
[2018-11-11] MEDS: EPINEPHRINE INJ/PF 1 MG/1 ML AMPULE ONE ×2 (07:42)
--- NOTE | 2018-11-12 13:17 | [facility] OPERATIVE REPORT E ---
[facility] Operative Report NAME: LENA OWUSU AGE: 68Y DATE OF SURGERY: 11/11/2018 ROOM: PREOPERATIVE DIAGNOSIS: CATARACT, RIGHT EYE. POSTOPERATIVE DIAGNOSIS: CATARACT, RIGHT EYE. OPERATION: Cataract extraction with insertion of an IOL of the right eye. SURGEON: MELBA BARNES M.D. ANESTHESIA: Topical. PROCEDURE: After obtaining appropriate consent, the patient's right eye was prepped and draped in sterile fashion as well as the surgeon in a sterile manner and cataract surgery was started. First a paracentesis blade was used to make a side-port incision. Viscoelastic was used to inflate the anterior chamber. Next a 2.4 mm incision was made with a 2.4 mm blade, clear corneal temporally. A continuous capsulorrhexis was made using a cystotome and Utrata forceps. Following this hydrodissection was carried out to make the lens fully loose and mobile and it was rotated 90 degrees. Following this, a zuqsdz-yyv-vgmsmae technique was used to phacoemulsify the lens with a CDE of 10.04. The remaining cortex was removed with irrigation/aspiration. Provisc was instilled into the capsular bag to inflate the bag. A SN60WF, 19.0 diopter lens was placed. The remaining viscoelastic material was removed with irrigation/aspiration. Following this, the incision was found to be watertight. Besivance was instilled into the eye and a protective shield was placed over the eye. The patient returned to the postoperative recovery in stable condition. DICTATING PHYSICIAN: MELBA BARNES M.D. [id number] PHY#: [id number] 2019 ID: [id number] JOB#: [id number] ACCT: [id number] cc:MELBA BARNES M.D. >
--- NOTE | 2018-11-12 13:17 | [facility] DISCHARGE SUMMARY E ---
[facility] Discharge Summary NAME: LENA OWUSU AGE: 68Y ADMITTED: 11/11/2018 DISCHARGED: 11/11/2018 HISTORY: This is a 68-year-old patient who underwent cataract extraction, right eye. DIAGNOSIS: Cataract, right eye. HOSPITAL COURSE: He underwent surgery because he was having difficulty and trouble seeing small print. DISCHARGE INSTRUCTIONS: He should be on a regular diet. No bending at his waist, no heavy lifting. He should use his Vigamox, Ketorolac, and Predforte at 3 p.m. and 8 p.m. and sleep with a rigid shield, and I will see him for his 1 day postoperative tomorrow. DICTATING PHYSICIAN: MELBA BARNES M.D. [id number] PHY#: [id number] 2019 ID: [id number] JOB#: [id number] ACCT: [id number] cc:MELBA BARNES M.D. >
== END 2018-11-11 08:32 | disposition home or self-care (01) ==
LOC: SC 06:22
PROVIDERS: ATTEND Internal Medicine
DX: H25.11 Age-related nuclear cataract, right eye (principal); Z96.1 Presence of intraocular lens; J45.909 Unspecified asthma, uncomplicated; I25.2 Old myocardial infarction; I10 Essential (primary) hypertension; E11.9 Type 2 diabetes mellitus without complications; Z86.73 Personal history of transient ischemic attack (TIA), and cerebral infarction without residual deficits; Z79.84 Long term (current) use of oral hypoglycemic drugs; Z79.899 Other long term (current) drug therapy; Z79.51 Long term (current) use of inhaled steroids
CPT/HCPCS: 66984; 82962; V2632; J2250; J3490 ×3; A9270; J0171; 142

== ENCOUNTER 2019-01-07 14:31 | Observation (INO) | payer MEDICARE, OTHER ==
--- NOTE | 2019-01-07 14:57 | ER Document Report ---
ED Medical Screen (RME) - General Chief Complaint: S/S of Possible Stroke Stated Complaint: SLURRED SPEECH Time Seen by Provider: 01/07/19 14:52 Primary Care Provider: YAKELIN THORNTON PA-C [Primary Care Provider] - Follow up as needed Notes: Patient was brought to the emergency department today to be evaluated for possible stroke. Patient says that she is been experiencing dizziness for the past 2 weeks. She is also falling at times. Most recently about a week and a half ago when she fell forward and hit her left forehead. Family says that she is slurring her words, but patient does not think she is. Patient says that she is been talking this way for a long time. About a week ago, she had some pain in her right jaw, but all the muscles of the face seem to work normally then. Patient denies chest pains, shortness of breath, abdominal pains. She does have headaches "all the time". 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 Hx IDDM, hypertension. TRAVEL OUTSIDE OF THE [place] IN LAST 30 DAYS: No - Related Data Allergies/Adverse Reactions: No Known Allergies Allergy (Verified 11/04/18 13:30) Past Medical History - Past Medical History Cardiac Medical History: Reports: Hx Heart Attack - 2012, Hx Hypercholesterolemia, Hx Hypertension Pulmonary Medical History: Reports: Hx Asthma - as a teenager Neurological Medical History: Reports: Hx Cerebrovascular Accident - NO RESIDUALS. Denies: Hx Seizures Endocrine Medical History: Reports: Hx Diabetes Mellitus Type 2 Renal/ Medical History: Denies: Hx Peritoneal Dialysis GI Medical History: Denies: Hx Hepatitis, Hx Hiatal Hernia, Hx Ulcer Psychiatric Medical History: Reports: Hx Depression Infectious Medical History: Denies: Hx Hepatitis Past Surgical History: Reports: Hx Hysterectomy, Hx Tubal Ligation. Denies: Hx Mastectomy, Hx Open Heart Surgery, Hx Pacemaker - Immunizations Hx Diphtheria, Pertussis, Tetanus Vaccination: Yes Physical Exam - Vital signs Vitals: Temp Pulse Resp BP Pulse Ox 99.0 F 112 H 20 109/65 96 01/07/19 14:39 01/07/19 14:39 01/07/19 14:39 01/07/19 14:39 01/07/19 14:39 Course - Vital Signs Vital signs: Temp Pulse Resp BP Pulse Ox 99.0 F 112 H 20 109/65 96 03/01/19 14:39 01/07/19 14:39 01/07/19 14:39 01/07/19 14:39 01/07/19 14:39 Doctor's Discharge - Discharge Referrals: YAKELIN THORNTON PA-C [Primary Care Provider] - Follow up as needed
[2019-01-07 15:22] LABS: ABSOLUTE BASOPHILS # (AUTO) 0.1 10^3/uL (0.0-0.2); ABSOLUTE EOSINOPHILS # (AUTO) 0.1 10^3/uL (0.0-0.6); ABSOLUTE LYMPHOCYTES (AUTO) 1.7 10^3/uL (0.5-4.7); ABSOLUTE MONOCYTES (AUTO) 0.3 10^3/uL (0.1-1.4); ABSOLUTE NEUT (AUTO) 10.1 10^3/uL (1.7-8.2); BASOPHILS % (AUTO) 0.9 % (0-2); EOSINOPHILS % (AUTO) 0.7 % (0-6); HEMATOCRIT 40.6 % (36.0-47.0); HEMOGLOBIN 13.6 g/dL (12.0-15.5); LYMPHOCYTES % (AUTO) 13.9 % (13-45); MEAN CORPUSCULAR HGB CONC 33.5 g/dL (32.0-36.0); MEAN CORPUSCULAR VOLUME 87 fl (80-97); MONOCYTES % (AUTO) 2.8 % (3-13); PLATELET COUNT 381 10^3/uL (150-450); RED BLOOD COUNT 4.69 10^6/uL (3.72-5.28); RED CELL DISTRIBUTION WIDTH 14.2 % (11.5-14.0); SEGMENTED NEUTROPHILS % (AUTO) 81.7 % (42-78); TOTAL CELLS COUNTED % (AUTO) 100 %; WHITE BLOOD COUNT 12.3 10^3/uL (4.0-10.5)
[2019-01-07 15:35] LABS: APPEARANCE,URINE CLOUDY; BILIRUBIN,URINE NEGATIVE (NEGATIVE); COLOR,URINE YELLOW; GLUCOSE, URINE >=500 mg/dL (NEGATIVE); KETONES,URINE NEGATIVE (NEGATIVE); LEUKOCYTE ESTERASE,URINE LARGE (NEGATIVE); NITRITE,URINE NEGATIVE (NEGATIVE); PROTEIN,URINE NEGATIVE (NEGATIVE); UROBILINOGEN,URINE NEGATIVE mg/dL (<2.0)
[2019-01-07 15:36] LABS: ALANINE AMINOTRANSFERASE 33 U/L (9-52); ALBUMIN 4.7 g/dL (3.5-5.0); ALKALINE PHOSPHATASE 83 U/L (38-126); ANION GAP 15 (5-19); ASPARTATE AMINO TRANSFERASE 30 U/L (14-36); BILIRUBIN,DIRECT 0.2 mg/dL (0.0-0.4); BLOOD UREA NITROGEN 24 mg/dL (7-20); CALCIUM 10.4 mg/dL (8.4-10.2); CARBON DIOXIDE 29 mmol/L (22-30); CHLORIDE 100 mmol/L (98-107); CREATINE KINASE 176 U/L (30-135); GLUCOSE 136 mg/dL (75-110); POTASSIUM 5.4 mmol/L (3.6-5.0); SODIUM 143.7 mmol/L (137-145); TOTAL PROTEIN 7.8 g/dL (6.3-8.2)
[2019-01-07 15:48] LABS: CREATINE KINASE MB 2.26 ng/mL (<4.55)
[2019-01-07 15:49] LABS: TROPONIN I < 0.012 ng/mL
--- NOTE | 2019-01-07 16:18 | RADIOLOGY REPORT (SQ) ---
EXAM DESCRIPTION: CT HEAD WITHOUT COMPLETED DATE/TIME: 01/07/2019 4:01 pm REASON FOR STUDY: Dizziness, forgetful, falling, questionable stroke COMPARISON: 06/30/2018 TECHNIQUE: Axial images acquired through the brain without intravenous contrast. Images reviewed wi th bone, brain and subdural windows. Additional sagittal and coronal reconstructions were generated. Images stored on PACS. All CT scanners at this facility use dose modulation, iterative reconstruction, and/or weight based d osing when appropriate to reduce radiation dose to as low as reasonably achievable (ALARA). [facility]: Dose Right [facility]: CareDose [facility]: Dose Right [facility]: Teradose 4D [facility]: [employer] RADIATION DOSE: CT Rad equipment meets quality standard of care and radiation dose reduction techniq ues were employed. CTDIvol: 53.2 mGy. DLP: 991 mGy-cm. mGy. LIMITATIONS: None. FINDINGS: VENTRICLES: Normal size and contour. CEREBRUM: No masses. No hemorrhage. No midline shift. There is encephalomalacia in the left occipi seda lobe that is more extensive than the findings on the study of 06/30/2018. Old lacunar infarcts bi laterally. No evidence for acute infarction. Areas of low density in the white matter most likely ch ronic small vessel ischemic changes. CEREBELLUM: No masses. No hemorrhage. No alteration of density. No evidence for acute infarction. EXTRAAXIAL SPACES: No fluid collections. No masses. ORBITS AND GLOBE: No intra- or extraconal masses. Normal contour of globe without masses. CALVARIUM: No fracture. PARANASAL SINUSES: Small mucous retained in cyst in the right maxillary sinus. SOFT TISSUES: No mass or hematoma. OTHER: No other significant finding. IMPRESSION: Chronic microvascular ischemia. Old infarcts. No acute intracranial imaging findings. EVIDENCE OF ACUTE STROKE: NO. COMMENT: Quality ID # [id number]: Final reports with documentation of one or more dose reduction techniques (e.g., Automated exposure control, adjustment of the mA and/or kV according to patient size, use of iterative reconstruction technique) TECHNICAL DOCUMENTATION: JOB ID: [id number] [employer]- All Rights Reserved Reading location - IP/workstation name: [email or web address]
[2019-01-07] MEDS ORDERED: CEFTRIAXONE 1 GM/D5W RTU 1 GM/50 ML RTUPB IV ONE (19:33)
--- NOTE | 2019-01-07 20:09 | ER Document Report ---
ED General - General Chief Complaint: S/S of Possible Stroke Stated Complaint: SLURRED SPEECH Time Seen by Provider: 01/07/19 14:52 Mode of Arrival: Ambulatory Information source: Patient Notes: This is a 68-year-old female with a history of diabetes, hypertension, dyslipidemia presents to the emergency room with disequilibrium and dizziness for the past several days, falling and difficulty with ambulation. Patient is accompanied by her daughter who states that she is had a difficult time walking around and that she is had slurred speech for the past day and a half. Patient denies any fever, chills, nausea or vomiting. She denies any focal motor weakness in arms or legs. TRAVEL OUTSIDE OF THE [place] IN LAST 30 DAYS: No - HPI Onset: Last week Onset/Duration: Gradual Quality of pain: No pain Severity: None Pain Level: Denies Associated symptoms: denies: Chest pain, Fever, Shortness of breath Exacerbated by: Denies Relieved by: Denies Similar symptoms previously: Yes Recently seen / treated by doctor: No - Related Data Allergies/Adverse Reactions: No Known Allergies Allergy (Verified 11/04/18 13:30) Past Medical History - General Information source: Patient - Social History Smoking Status: Never Smoker Cigarette use (# per day): No Chew tobacco use (# tins/day): No Frequency of alcohol use: None Drug Abuse: None Lives with: Family Family History: DM, Hypertension Patient has suicidal ideation: No Patient has homicidal ideation: No - Past Medical History Cardiac Medical History: Reports: Hx Heart Attack - 2013, Hx Hypercholesterolemia, Hx Hypertension Pulmonary Medical History: Reports: Hx Asthma - as a teenager Neurological Medical History: Reports: Hx Cerebrovascular Accident - NO RESIDUALS. Denies: Hx Seizures Endocrine Medical History: Reports: Hx Diabetes Mellitus Type 2 Renal/ Medical History: Denies: Hx Peritoneal Dialysis GI Medical History: Denies: Hx Hepatitis, Hx Hiatal Hernia, Hx Ulcer Psychiatric Medical History: Reports: Hx Depression Infectious Medical History: Denies: Hx Hepatitis Past Surgical History: Reports: Hx Hysterectomy, Hx Tubal Ligation. Denies: Hx Mastectomy, Hx Open Heart Surgery, Hx Pacemaker - Immunizations Hx Diphtheria, Pertussis, Tetanus Vaccination: Yes Review of Systems - Review of Systems Constitutional: denies: Chills, Fever EENT: No symptoms reported Cardiovascular: denies: Chest pain, Palpitations, Heart racing Respiratory: denies: Cough, Hemoptysis, Wheezing Gastrointestinal: denies: Abdomen distended, Abdominal pain, Diarrhea Genitourinary: No symptoms reported. denies: Burning, Dysuria, Frequency, Flank pain, Urgency Female Genitourinary: No symptoms reported Musculoskeletal: No symptoms reported Skin: No symptoms reported Hematologic/Lymphatic: No symptoms reported Neurological/Psychological: See HPI Physical Exam - Vital signs Vitals: Temp Pulse Resp BP Pulse Ox 99.0 F 112 H 20 109/65 96 01/07/19 14:39 01/07/19 14:39 01/07/19 14:39 01/07/19 14:39 01/07/19 14:39 Notes: Physical exam: GENERAL: She is alert and oriented x3, no acute distress HEAD: Normocephalic. He does have an abrasion to the forehead after fall today. EYES: Pupils equal round and reactive to light, extraocular movements intact, sclera anicteric, conjunctiva are normal. ENT: TMs normal, nares patent, oropharynx clear without exudates. Moist mucous membranes. NECK: Normal range of motion, supple without obvious mass or JVD. LUNGS: Breath sounds clear to auscultation bilaterally and equal. No wheezes rales or rhonchi. HEART: Regular rate and rhythm without murmurs, rubs or gallops. ABDOMEN: Soft, normoactive bowel sounds. No tenderness to palpation. No guarding, no rebound. No masses appreciated. EXTREMITIES: Normal range of motion, no pitting or edema. No clubbing or cyanosis. NEUROLOGICAL: Cranial nerves II through XII grossly intact. She does have slight nystagmus which is horizontal in nature when looking laterally to both sides. Patient's daughter states that the speech is better than it was earlier. Patient's motor exam is 5/5 and symmetrical upper and lower. Patient sensory is grossly intact. Patient's finger to the nose is mildly altered on both sides. PSYCH: Normal mood, normal affect. SKIN: Warm, Dry, normal turgor, no rashes or lesions noted. Course - Re-evaluation Re-evalutation: 01/07/19 21:03 Note this is a 68-year-old woman with a history of diabetes, dyslipidemia and hypertension who is presenting to the emergency room with a few days history of difficulty with ambulating, multiple falls, dizziness. She has been told in the past that she has vertigo. However, her CT shows evidence of old strokes. She has had recent slurred speech and her symptoms have been worse over the last few days. The concern is that she may have a subacute or acute stroke. Given this, we will bring her into the hospital for continued workup. Additionally, she does appear to have mild dehydration and also has acute urinary infection. - Vital Signs Vital signs: Temp Pulse Resp BP Pulse Ox 98.5 F 85 16 149/89 H 93 01/07/19 18:43 01/07/19 18:13 01/07/19 18:43 01/07/19 18:43 01/07/19 18:43 - Laboratory Result Diagrams: 01/07/19 15:02 01/07/19 15:02 Laboratory results interpreted by me: 01/07/19 01/07/19 01/07/19 15:02 15:02 15:02 WBC 12.3 H RDW 14.2 H Seg Neutrophils % 81.7 H Monocytes % 2.8 L Absolute Neutrophils 10.1 H Potassium 5.4 H BUN 24 H Glucose 136 H Calcium 10.4 H Creatine Kinase 176 H Urine Glucose (UA) >=500 H Ur Leukocyte Esterase LARGE H - Diagnostic Test Radiology reviewed: Image reviewed, Reports reviewed - CT shows old strokes. It does not show any acute new stroke. - EKG Interpretation by Me Rate: Normal Rhythm: NSR - EKG shows normal sinus rhythm with a ventricular rate of 92, no acute ST-T wave changes Critical Care Note - Critical Care Note Total time excluding time spent on procedures (mins): 60 Discharge - Discharge Clinical Impression: TIA, Ambulatory dysfunction, UTI Condition: Stable Disposition: ADMITTED OBSERVATION Admitting Provider: Hospitalist - dr sagastume Unit Admitted: [facility]
[2019-01-07] MEDS ORDERED: MAGNESIUM HYDROXIDE SUSP 30 ML UDCUP PO PRN (20:13)
[2019-01-07] MEDS ORDERED: ACETAMINOPHEN 325 MG TABLET PO PRN (20:13)
[2019-01-07] MEDS ORDERED: DEXTROSE 50%-WATER 25 GM/50 ML DISP.SYRIN IV PRN ×2 (20:13)
[2019-01-07] MEDS ORDERED: DEXTROSE 40% GEL 15 GM TUBE PO PRN ×2 (20:13)
[2019-01-07] MEDS ORDERED: GLUCAGON,HUMAN RECOMB 1 MG INJ IM PRN (20:13)
[2019-01-07] MEDS ORDERED: LACTULOSE SYRUP 20 GM/30 ML UDCUP PO ONE (20:30)
[2019-01-07] MEDS ORDERED: CLOPIDOGREL BISULFATE 75 MG TABLET PO SCH (20:30)
--- NOTE | 2019-01-07 20:57 | RADIOLOGY REPORT (SQ) ---
EXAM DESCRIPTION: XR CHEST 2 VIEWS COMPLETED DATE/TME: 01/07/2019 20:06 CLINICAL HISTORY: 68 years, Female, cough COMPARISON: X-ray chest 07/21/2016 NUMBER OF VIEWS: TECHNIQUE: LIMITATIONS: None. FINDINGS: There is a questionable small amount of atelectasis or infiltrate at the lateral left lung base. The lungs are otherwise clear. The heart is normal in size. Pulmonary vascularity appears normal. There are atherosclerotic changes and tortuosity of the thoracic aorta. IMPRESSION: Questionable small amount of atelectasis or infiltrate at the lateral left lung base. Pneumonia cannot be excluded. copyright 2010 [email or web address]- All Rights Reserved
--- NOTE | 2019-01-07 22:03 | EKG REPORT ---
SEVERITY:- ABNORMAL ECG - SINUS RHYTHM FIRST DEGREE AV BLOCK : Confirmed by: Lynda Garcia 07-Jan-2019 22:02:36
[2019-01-07] MEDS: ATORVASTATIN CALCIUM 40 MG TABLET PO SCH (22:28)
[2019-01-07] MEDS: CARVEDILOL 12.5 MG TABLET PO SCH (22:28)
[2019-01-07] MEDS: HEPARIN SOD (PORCINE) 5,000 UNIT/ML 1 ML SYRINGE SUBCUT SCH (22:28)
--- NOTE | 2019-01-07 22:33 | RADIOLOGY REPORT (SQ) ---
EXAM DESCRIPTION: MR BRAIN WITHOUT THEN WITH IV CONTRAST COMPLETED DATE/TME: 01/07/2019 20:22 CLINICAL HISTORY: 68 years, Female, ataxia COMPARISON: None. TECHNIQUE: Images stored on PACS. LIMITATIONS: None. FINDINGS: EXAM DESCRIPTION: CLINICAL HISTORY: ataxia COMPARISON: 07/22/2016 TECHNIQUE: Multiplanar multisequence imaging of the brain including the intravenous administration of contrast. FINDINGS: There is a region of new volume loss in the left occipital lobe with acutely abnormally restricted diffusion. There is corresponding increased FLAIR signal intensity consistent with acute ischemia greater than eight hours old. No other acute ischemia is seen elsewhere. There is scattered encephalomalacia seen elsewhere including involving the corpus callosum which is thinned anteriorly. Linear increased T1 signal involving the left occipital cortex is most consistent with evolving cortical laminar necrosis. This overlies the region of encephalomalacia. Please note that a small amount of hemorrhage is not excluded in this region, but I suspect that increased T1 signal instead represents evolving cortical laminar necrosis. Scattered foci of increased T2 signal intensity elsewhere do not exert significant mass effect on surrounding structures and may be sequela of prior insult, most likely on the basis of small vessel disease. There is abnormal enhancement involving the region of encephalomalacia in the left occipital lobe as well, also likely related to infarct/cortical laminar necrosis. No other acute abnormality. IMPRESSION: Encephalomalacia, cortical laminar necrosis, and acute ischemia involving the left occipital lobe greater than eight hours old. No definite hyperacute ischemia. Extensive scattered encephalomalacia elsewhere is consistent with prior insult likely on the basis of small vessel disease. Please note that a small amount of hemorrhage at the site of ischemia in the left occipital lobe is not entirely excluded, although I suspect increased T1 signal is instead evolving cortical laminar necrosis.
[2019-01-07 23:17] LABS: CREATINE KINASE MB 2.03 ng/mL (<4.55)
[2019-01-07 23:22] LABS: TROPONIN I < 0.012 ng/mL
--- NOTE | 2019-01-08 02:01 | RADIOLOGY REPORT (SQ) ---
US CAROTID DOPPLER BILATERAL HISTORY: Ataxia COMPARISON: None. TECHNIQUE: Pace-scale ultrasound, Color Doppler, and spectral Doppler evaluation of bilateral extracranial carotid artery systems and vertebral arteries in the neck. FINDINGS: RIGHT: The peak systolic velocity in cm/sec is as follows: Proximal CCA: 82 Distal CCA: 76 Proximal ICA: 73 Distal ICA: 78 External Carotid Artery: 145 Vertebral Artery: 35, Antegrade flow. ICA/CCA Ratio: 1.0 Mild plaque at the carotid bifurcation. LEFT: The peak systolic velocity in the cm/sec is as follows: Proximal CCA: 63 Distal CCA: 81 Proximal ICA: 61 Distal ICA: 72 External Carotid Artery: 173 Vertebral Artery: 50, Antegrade flow. ICA/CCA Ratio: 0.9 Mild plaque at the carotid bifurcation. IMPRESSION: 1. No evidence of hemodynamically significant stenosis in the bilateral common carotid and internal carotid arteries. 2. Mild plaque at the bilateral carotid bifurcations.
[2019-01-08 05:07] LABS: ABSOLUTE BASOPHILS # (AUTO) 0.1 10^3/uL (0.0-0.2); ABSOLUTE EOSINOPHILS # (AUTO) 0.3 10^3/uL (0.0-0.6); ABSOLUTE LYMPHOCYTES (AUTO) 2.7 10^3/uL (0.5-4.7); ABSOLUTE MONOCYTES (AUTO) 0.6 10^3/uL (0.1-1.4); BASOPHILS % (AUTO) 1.1 % (0-2); EOSINOPHILS % (AUTO) 2.2 % (0-6); HEMATOCRIT 36.7 % (36.0-47.0); HEMOGLOBIN 12.4 g/dL (12.0-15.5); LYMPHOCYTES % (AUTO) 23.1 % (13-45); MEAN CORPUSCULAR HEMOGLOBIN 29.1 pg (27.0-33.4); MEAN CORPUSCULAR HGB CONC 33.8 g/dL (32.0-36.0); MEAN CORPUSCULAR VOLUME 86 fl (80-97); MONOCYTES % (AUTO) 4.8 % (3-13); PLATELET COUNT 323 10^3/uL (150-450); RED BLOOD COUNT 4.28 10^6/uL (3.72-5.28); RED CELL DISTRIBUTION WIDTH 14.3 % (11.5-14.0); SEGMENTED NEUTROPHILS % (AUTO) 68.8 % (42-78); TOTAL CELLS COUNTED % (AUTO) 100 %; WHITE BLOOD COUNT 11.6 10^3/uL (4.0-10.5)
[2019-01-08] MEDS ORDERED: NORMAL SALINE 1000 ML 1,000 ML IV ONE (05:09)
[2019-01-08] MEDS: HEPARIN SOD (PORCINE) 5,000 UNIT/ML 1 ML SYRINGE SUBCUT SCH ×3 (05:21→21:22)
[2019-01-08 05:29] LABS: ANION GAP 9 (5-19); BLOOD UREA NITROGEN 25 mg/dL (7-20); CALCIUM 9.8 mg/dL (8.4-10.2); CARBON DIOXIDE 31 mmol/L (22-30); CHLORIDE 103 mmol/L (98-107); CHOLESTEROL 111.84 mg/dL (0-200); POTASSIUM 4.7 mmol/L (3.6-5.0); SODIUM 142.8 mmol/L (137-145); TRIGLYCERIDES 175 mg/dL (<150)
[2019-01-08 05:39] LABS: DIRECT LDL 62 mg/dL (<100)
[2019-01-08 05:41] LABS: CREATINE KINASE MB 1.74 ng/mL (<4.55)
[2019-01-08 05:54] LABS: GLUCOSE 65 mg/dL (75-110)
[2019-01-08 05:58] LABS: TROPONIN I < 0.012 ng/mL
[2019-01-08] MEDS: INSULIN LISPRO 100 UNIT/ML 3 ML VIAL SUBCUT SCH ×3 (09:50→18:03)
[2019-01-08] MEDS ORDERED: AMLODIPINE BESYLATE 10 MG TABLET PO SCH (10:00)
[2019-01-08] MEDS: ASPIRIN 325 MG TABLET, ENT COATED PO SCH (10:46)
[2019-01-08] MEDS: CARVEDILOL 12.5 MG TABLET PO SCH ×2 (10:46→21:22)
[2019-01-08] MEDS: INSULIN DETEMIR 100 UNIT/ML 3 ML PEN SUBCUT SCH ×2 (10:47→18:02)
[2019-01-08 11:54] LABS: TROPONIN I < 0.012 ng/mL
--- NOTE | 2019-01-08 17:26 | PDOC PROGRESS REPORT ---
Subjective Progress Note for:: 01/08/19 Subjective:: No adverse events overnight. No new complaints. She got up and walked 300 feet with physical therapy. She denies any trouble using her arms or legs. She denies any visual disturbances. No trouble chewing or swallowing. Reason For Visit: ATAXIA SLURRED SPEECH Physical Exam Vital Signs: Temp Pulse Resp BP Pulse Ox 98.1 F 84 17 130/69 H 93 01/08/19 14:00 01/08/19 14:00 01/08/19 14:00 01/08/19 14:00 01/08/19 14:00 Intake & Output 01/07/19 01/08/19 01/09/19 06:59 06:59 06:59 Intake Total 50 1473 Balance 50 1473 Weight 71.2 kg General appearance: PRESENT: no acute distress, cooperative, disheveled, obese Eye exam: PRESENT: EOMI, PERRLA. ABSENT: nystagmus, scleral icterus Respiratory exam: PRESENT: clear to auscultation prasad, symmetrical, unlabored. ABSENT: accessory muscle use, crackles, prolonged expiratory phas, rhonchi, tachypnea, wheezes Cardiovascular exam: PRESENT: RRR, +S1, +S2 Pulses: PRESENT: normal carotid pulses Vascular exam: PRESENT: normal capillary refill GI/Abdominal exam: PRESENT: normal bowel sounds, soft. ABSENT: distended, guarding, rebound, tenderness Extremities exam: ABSENT: clubbing, pedal edema Musculoskeletal exam: PRESENT: normal inspection. ABSENT: deformity Neurological exam: PRESENT: alert, awake, oriented to person, oriented to place, oriented to time, oriented to situation, CN II-XII grossly intact. ABSENT: motor sensory deficit Psychiatric exam: PRESENT: appropriate affect, normal mood Skin exam: PRESENT: dry, warm Results Laboratory Results: 01/08/19 04:46 01/08/19 04:46 01/07/19 01/08/19 01/08/19 22:40 04:46 04:46 WBC 11.6 H RBC 4.28 Hgb 12.4 Hct 36.7 MCV 86 MCH 29.1 MCHC 33.8 RDW 14.3 H Plt Count 323 Seg Neutrophils % 68.8 Lymphocytes % 23.1 Monocytes % 4.8 Eosinophils % 2.2 Basophils % 1.1 Absolute Neutrophils 8.0 Absolute Lymphocytes 2.7 Absolute Monocytes 0.6 Absolute Eosinophils 0.3 Absolute Basophils 0.1 Sodium 142.8 Potassium 4.7 Chloride 103 Carbon Dioxide 31 H Anion Gap 9 BUN 25 H Creatinine 0.83 Est GFR ( Amer) > 60 Est GFR (Non-Af Amer) > 60 Glucose 65 L Calcium 9.8 Triglycerides 175 H Cholesterol 111.84 LDL Cholesterol Direct 62 VLDL Cholesterol 35.0 H HDL Cholesterol 35 L TSH 1.10 01/07/19 01/07/19 01/07/19 15:02 15:02 22:40 Creatine Kinase 176 H 169 H CK-MB (CK-2) 2.26 Troponin I < 0.012 01/07/19 01/08/19 01/08/19 22:40 04:46 04:46 Creatine Kinase 146 H CK-MB (CK-2) 2.03 1.74 Troponin I < 0.012 < 0.012 01/08/19 01/08/19 10:45 10:45 Creatine Kinase 117 CK-MB (CK-2) 1.60 Troponin I < 0.012 Impressions: Head CT 01/07/19 14:53 IMPRESSION: Chronic microvascular ischemia. Old infarcts. No acute intracranial imaging findings. EVIDENCE OF ACUTE STROKE: NO. Chest X-Ray 01/07/19 20:06 IMPRESSION: Questionable small amount of atelectasis or infiltrate at the lateral left lung base. Pneumonia cannot be excluded. copyright 2011 [email or web address]- All Rights Reserved Carotid Doppler Study 01/07/19 20:18 IMPRESSION: 1. No evidence of hemodynamically significant stenosis in the bilateral common carotid and internal carotid arteries. 2. Mild plaque at the bilateral carotid bifurcations. Head MRI 01/07/19 20:22 IMPRESSION: Encephalomalacia, cortical laminar necrosis, and acute ischemia involving the left occipital lobe greater than eight hours old. No definite hyperacute ischemia. Extensive scattered encephalomalacia elsewhere is consistent with prior insult likely on the basis of small vessel disease. Please note that a small amount of hemorrhage at the site of ischemia in the left occipital lobe is not entirely excluded, although I suspect increased T1 signal is instead evolving cortical laminar necrosis. Assessment & Plan - Diagnosis (1) Acute CVA (cerebrovascular accident) Is this a current diagnosis for this admission?: Yes Plan: Her blood pressure is acceptable. She does not smoke. She will continue on aspirin and statin. She is on metformin for diabetes, but her diet needs to improve so she can achieve better glucose control, with a hemoglobin A1c of 9%. She did very well for physical therapy. Anticipate that she should be able to go home tomorrow. (2) Diabetes mellitus Qualifiers: Diabetes mellitus type: type 2 Diabetes mellitus retirement insulin use: without retirement use Diabetes mellitus complication status: with circulatory complication Diabetes mellitus complication detail: with other circulatory complications Qualified Code(s): E11.59 - Type 2 diabetes mellitus with other circulatory complications Is this a current diagnosis for this admission?: Yes Plan: Currently on metformin, hemoglobin A1c is 9%. She will need stricter dietary control as well as a program of regular physical activity. If she is unable to get her glucose under control with these measures, she will need adjustments to her medications. - Time Time Spent with patient: 25-34 minutes
[2019-01-08] MEDS: ATORVASTATIN CALCIUM 40 MG TABLET PO SCH (21:22)
[2019-01-09 01:36] LABS: URINE AMPHETAMINES SCREEN NEGATIVE; URINE BARBITURATES SCREEN NEGATIVE; URINE BENZODIAZEPINES SCREEN NEGATIVE; URINE COCAINE SCREEN NEGATIVE; URINE MARIJUANA (THC) SCREEN NEGATIVE; URINE METHADONE SCREEN NEGATIVE; URINE PHENCYCLIDINE SCREEN NEGATIVE
[2019-01-09] MEDS: HEPARIN SOD (PORCINE) 5,000 UNIT/ML 1 ML SYRINGE SUBCUT SCH ×2 (05:29→14:13)
[2019-01-09 06:40] LABS: ANION GAP 10 (5-19); BLOOD UREA NITROGEN 14 mg/dL (7-20); CALCIUM 9.6 mg/dL (8.4-10.2); CARBON DIOXIDE 29 mmol/L (22-30); CHLORIDE 103 mmol/L (98-107); GLUCOSE 150 mg/dL (75-110); POTASSIUM 4.7 mmol/L (3.6-5.0); SODIUM 141.7 mmol/L (137-145)
[2019-01-09] MEDS: ASPIRIN 325 MG TABLET, ENT COATED PO SCH (09:33)
[2019-01-09] MEDS: CARVEDILOL 12.5 MG TABLET PO SCH (09:34)
[2019-01-09] MEDS: INSULIN LISPRO 100 UNIT/ML 3 ML VIAL SUBCUT SCH ×2 (09:34→12:36)
[2019-01-09] MEDS: INSULIN DETEMIR 100 UNIT/ML 3 ML PEN SUBCUT SCH (09:35)
[2019-01-09 14:57] VITALS: BP 130/69
--- NOTE | 2019-01-09 16:42 | PDOC DISCHARGE SUMMARY ---
General - Admit/Disc Date/PCP Admission Date/Primary Care Provider: 01/07/19 20:20 YAKELIN THORNTON PA-C Discharge Date: 01/09/19 - Discharge Diagnosis (1) Acute CVA (cerebrovascular accident) Is this a current diagnosis for this admission?: Yes Summary: She had surprisingly little functional deficits. She was already taking a statin. An aspirin was added to her regimen. We talked about the importance of diabetes maintenance. Recommended that she start light physical activity, starting with walking for 30 minutes a day. She does not smoke. Did well with physical therapy, did not want to do any physical therapy at home because she felt like she could get around well enough. (2) Diabetes mellitus Is this a current diagnosis for this admission?: Yes Summary: Hemoglobin A1c was 9. She says she takes metformin and Levemir at home. Strongly urged her to take better care of her diabetes to reduce her risk of stroke, heart disease, renal failure, and vascular complications. - Additional Information Discharge Diet: Cardiac, Diabetic Discharge Activity: Activity As Tolerated Prescriptions: Aspirin [Aspirin 81 mg Chewable Tablet] 81 mg PO DAILY #1 pkg Home Medications: Atorvastatin Calcium [Lipitor 40 mg Tablet] 80 mg PO QHS 03/31/17 Lisinopril [Prinivil 40 mg Tablet] 40 mg PO DAILY 03/31/17 Amlodipine Besylate [Norvasc 10 mg Tablet] 10 mg PO DAILY 10/18/18 Meclizine HCl [Antivert 12.5 mg Tablet] 12.5 mg PO TID 01/08/19 Metformin HCl [Metformin HCl ER] 1,000 mg PO DAILY 01/08/19 Sertraline HCl [Zoloft] 25 mg PO DAILY 01/08/19 Aspirin [Aspirin 81 mg Chewable Tablet] 81 mg PO DAILY #1 pkg 01/09/19 History of Present Illness History of Present Illness: LENA OWUSU is a 68 year old female with a history of diabetes, dyslipidemia and hypertension who is presenting to the emergency room with a few days history of difficulty with ambulating, multiple falls, dizziness. She has been told in the past that she has vertigo. However, her CT shows evidence of old strokes. She has had recent slurred speech and her symptoms have been worse over the last few days. The concern is that she may have a subacute or acute stroke. Given this, we will bring her into the hospital for continued workup. Hospital Course Hospital Course: MRI showed evidence of left occipital stroke. She fortunately had no evidence of any sustained new deficits. She felt like she was back to baseline from a functional standpoint by her second in the hospital. She did well with physical therapy and did not want to do any further physical therapy. I have added an aspirin to her home medication regimen. Strongly encouraged her to take better care of her diabetes and start a reasonable program of activity. She will continue her statin medication. Her labs and examination were reassuring and she was discharged today in good condition. Physical Exam Vital Signs: Temp Pulse Resp BP Pulse Ox 97.5 F 71 14 130/69 H 98 01/09/19 14:56 01/09/19 14:56 01/09/19 14:56 01/09/19 14:56 01/09/19 14:56 Intake & Output 01/08/19 01/09/19 01/10/19 06:59 06:59 06:59 Intake Total 50 1910 473 Balance 50 1910 473 Weight 71.2 kg 71.9 kg General appearance: PRESENT: no acute distress, cooperative, disheveled, obese Eye exam: PRESENT: EOMI, PERRLA. ABSENT: nystagmus, scleral icterus Respiratory exam: PRESENT: clear to auscultation prasad, symmetrical, unlabored. ABSENT: accessory muscle use, crackles, prolonged expiratory phas, rhonchi, tachypnea, wheezes Cardiovascular exam: PRESENT: RRR, +S1, +S2 Pulses: PRESENT: normal carotid pulses Vascular exam: PRESENT: normal capillary refill GI/Abdominal exam: PRESENT: normal bowel sounds, soft. ABSENT: distended, guarding, rebound, tenderness Extremities exam: ABSENT: clubbing, pedal edema Musculoskeletal exam: PRESENT: normal inspection. ABSENT: deformity Neurological exam: PRESENT: alert, awake, oriented to person, oriented to place, oriented to time, oriented to situation, CN II-XII grossly intact. ABSENT: motor sensory deficit Psychiatric exam: PRESENT: appropriate affect, normal mood Skin exam: PRESENT: dry, warm Results Laboratory Results: 01/08/19 04:46 01/09/19 06:04 01/09/19 06:04 Sodium 141.7 Potassium 4.7 Chloride 103 Carbon Dioxide 29 Anion Gap 10 BUN 14 Creatinine 0.72 Est GFR ( Amer) > 60 Est GFR (Non-Af Amer) > 60 Glucose 150 H Calcium 9.6 01/07/19 15:02 Clean Catch Midstream Urine Culture - Final Group B Beta Streptococcus 01/07/19 01/07/19 01/07/19 15:02 15:02 22:40 Creatine Kinase 176 H 169 H CK-MB (CK-2) 2.26 Troponin I < 0.012 01/07/19 01/08/19 01/08/19 22:40 04:46 04:46 Creatine Kinase 146 H CK-MB (CK-2) 2.03 1.74 Troponin I < 0.012 < 0.012 01/08/19 01/08/19 10:45 10:45 Creatine Kinase 117 CK-MB (CK-2) 1.60 Troponin I < 0.012 Impressions: Head CT 01/07/19 14:53 IMPRESSION: Chronic microvascular ischemia. Old infarcts. No acute intracranial imaging findings. EVIDENCE OF ACUTE STROKE: NO. Chest X-Ray 01/07/19 20:06 IMPRESSION: Questionable small amount of atelectasis or infiltrate at the lateral left lung base. Pneumonia cannot be excluded. copyright 2011 [employer]- All Rights Reserved Carotid Doppler Study 01/07/19 20:18 IMPRESSION: 1. No evidence of hemodynamically significant stenosis in the bilateral common carotid and internal carotid arteries. 2. Mild plaque at the bilateral carotid bifurcations. Head MRI 01/07/19 20:22 IMPRESSION: Encephalomalacia, cortical laminar necrosis, and acute ischemia involving the left occipital lobe greater than eight hours old. No definite hyperacute ischemia. Extensive scattered encephalomalacia elsewhere is consistent with prior insult likely on the basis of small vessel disease. Please note that a small amount of hemorrhage at the site of ischemia in the left occipital lobe is not entirely excluded, although I suspect increased T1 signal is instead evolving cortical laminar necrosis. Qualifiers - * PATIENT BEING DISCHARGED WITH ANY OF THE FOLLOWING DIAGNOSIS: Stroke Stroke Pt being discharged on Anti-thrombolytic therapy?: Yes Stroke Pt being discharged on Anti-coagulation therapy?: No Reason(s) for not prescribing Anti-coagulation therapy:: Not indicated Stroke Pt being discharged on Statins?: Yes
--- NOTE | 2019-01-11 07:51 | PDOC H&P ---
History of Present Illness Admission Date/PCP: 01/07/19 20:20 YAKELIN THORNTON PA-C Patient complains of: Slurred speech History of Present Illness: LENA OWUSU is a 68 year old female with a past medical history of diabetes, hypertension, dyslipidemia and CVA without residual deficit who presents to the emergency room with several days of dizziness, poor balance with falls and 24 hours of slurred speech. In the emergency room she is found to have ataxia, and slightly slurred speech. MRI reveals subacute CVA and she is referred to the hospitalist for admission. Patient denies headache, blurred vision, palpitations, chest pain, nausea or vomiting. No recent change of medications, Past Medical History Cardiac Medical History: Reports: Myocardial Infarction - 2013, Hyperlipidema, Hypertension Pulmonary Medical History: Reports: Asthma - as a teenager Neurological Medical History: Denies: Seizures Endocrine Medical History: Reports: Diabetes Mellitus Type 2 GI Medical History: Denies: Hepatitis, Hiatal Hernia Psychiatric Medical History: Reports: Depression Hematology: Denies: Anemia, Sickle Cell Disease Past Surgical History Past Surgical History: Reports: Hysterectomy, Tubal Ligation Denies: Amputation, Mastectomy, Pacemaker Social History Information Source: Patient, Emergency Med Personnel, [facility] Records Lives with: Family Smoking Status: Former Smoker Cigarettes Packs Per Day: 1 Last Time Smoked: 40 years ago Frequency of Alcohol Use: None Hx Recreational Drug Use: No Hx Prescription Drug Abuse: Yes - Advance Directive Resuscitation Status: Full Code Family History Family History: DM, Hypertension Parental Family History Reviewed: Yes Children Family History Reviewed: Yes Sibling(s) Family History Reviewed.: Yes Medication/Allergy Home Medications: Atorvastatin Calcium [Lipitor 40 mg Tablet] 80 mg PO QHS 03/31/17 Lisinopril [Prinivil 40 mg Tablet] 40 mg PO DAILY 03/31/17 Amlodipine Besylate [Norvasc 10 mg Tablet] 10 mg PO DAILY 10/18/18 Meclizine HCl [Antivert 12.5 mg Tablet] 12.5 mg PO TID 01/08/19 Metformin HCl [Metformin HCl ER] 1,000 mg PO DAILY 01/08/19 Sertraline HCl [Zoloft] 25 mg PO DAILY 01/08/19 Aspirin [Aspirin 81 mg Chewable Tablet] 81 mg PO DAILY #1 pkg 01/09/19 Allergies/Adverse Reactions: No Known Allergies Allergy (Verified 11/04/18 13:30) Review of Systems Constitutional: PRESENT: weakness, other - Falls. ABSENT: anorexia, fatigue, fever(s) Eyes: ABSENT: visual disturbances Ears: ABSENT: hearing changes Cardiovascular: ABSENT: chest pain, dyspnea on exertion, edema, orthropnea, palpitations Respiratory: PRESENT: as per HPI Gastrointestinal: ABSENT: abdominal pain, constipation, diarrhea, hematemesis, hematochezia, nausea, vomiting Genitourinary: ABSENT: dysuria, hematuria Musculoskeletal: PRESENT: as per HPI, muscle weakness. ABSENT: joint swelling Integumentary: ABSENT: rash, wounds Neurological: PRESENT: as per HPI, abnormal gait, abnormal speech, dizziness, frequent falls, vertigo Psychiatric: ABSENT: anxiety, depression, homidical ideation, suicidal ideation Endocrine: ABSENT: cold intolerance, heat intolerance, polydipsia, polyuria Hematologic/Lymphatic: ABSENT: easy bleeding, easy bruising Physical Exam Vital Signs: Temp Pulse Resp BP Pulse Ox 97.5 F 71 14 130/69 H 98 01/09/19 14:56 01/09/19 14:56 01/09/19 14:56 01/09/19 14:56 01/09/19 14:56 Intake & Output 01/09/19 01/10/19 01/11/19 11:59 11:59 11:59 Intake Total 910 473 Balance 910 473 Weight 71.9 kg General appearance: PRESENT: no acute distress, cooperative. ABSENT: disheveled, severe distress Head exam: PRESENT: atraumatic, normocephalic Eye exam: PRESENT: conjunctiva pink, EOMI, nystagmus, PERRLA. ABSENT: scleral icterus Ear exam: PRESENT: normal external ear exam Mouth exam: PRESENT: moist, tongue midline Neck exam: ABSENT: carotid bruit, JVD, lymphadenopathy, thyromegaly Respiratory exam: PRESENT: clear to auscultation prasad. ABSENT: rales, rhonchi, wheezes Cardiovascular exam: PRESENT: RRR. ABSENT: diastolic murmur, rubs, systolic murmur Pulses: PRESENT: normal dorsalis pedis pul Vascular exam: PRESENT: normal capillary refill GI/Abdominal exam: PRESENT: normal bowel sounds, soft. ABSENT: distended, guarding, mass, organolmegaly, rebound, tenderness Rectal exam: PRESENT: deferred Extremities exam: PRESENT: full ROM. ABSENT: calf tenderness, clubbing, pedal edema Musculoskeletal exam: PRESENT: ambulatory, full ROM. ABSENT: dislocation, tenderness Neurological exam: PRESENT: alert, awake, oriented to person, oriented to place, oriented to time, oriented to situation, ataxia, CN II-XII grossly intact. ABSENT: motor sensory deficit Psychiatric exam: PRESENT: appropriate affect, normal mood. ABSENT: homicidal ideation, suicidal ideation Skin exam: PRESENT: dry, intact, warm. ABSENT: cyanosis, rash Results Laboratory Results: 01/08/19 04:46 01/09/19 06:04 01/07/19 01/07/19 01/07/19 15:02 15:02 22:40 Creatine Kinase 176 H 169 H CK-MB (CK-2) 2.26 Troponin I < 0.012 01/07/19 01/08/19 01/08/19 22:40 04:46 04:46 Creatine Kinase 146 H CK-MB (CK-2) 2.03 1.74 Troponin I < 0.012 < 0.012 01/08/19 01/08/19 10:45 10:45 Creatine Kinase 117 CK-MB (CK-2) 1.60 Troponin I < 0.012 Impressions: Head CT 01/07/19 14:53 IMPRESSION: Chronic microvascular ischemia. Old infarcts. No acute intracranial imaging findings. EVIDENCE OF ACUTE STROKE: NO. Chest X-Ray 01/07/19 20:06 IMPRESSION: Questionable small amount of atelectasis or infiltrate at the lateral left lung base. Pneumonia cannot be excluded. copyright 2011 [employer]- All Rights Reserved Carotid Doppler Study 01/07/19 20:18 IMPRESSION: 1. No evidence of hemodynamically significant stenosis in the bilateral common carotid and internal carotid arteries. 2. Mild plaque at the bilateral carotid bifurcations. Head MRI 01/07/19 20:22 IMPRESSION: Encephalomalacia, cortical laminar necrosis, and acute ischemia involving the left occipital lobe greater than eight hours old. No definite hyperacute ischemia. Extensive scattered encephalomalacia elsewhere is consistent with prior insult likely on the basis of small vessel disease. Please note that a small amount of hemorrhage at the site of ischemia in the left occipital lobe is not entirely excluded, although I suspect increased T1 signal is instead evolving cortical laminar necrosis. Assessment & Plan - Diagnosis (1) Acute CVA (cerebrovascular accident) Is this a current diagnosis for this admission?: Yes Plan: Out of the window for TPA, admitted to a monitored bed with CVA care set, follow-up physical therapy, carotid Doppler, MRI, 2D echo and lipid profile. (2) Diabetes mellitus Qualifiers: Diabetes mellitus type: type 2 Diabetes mellitus meterman insulin use: without fdc use Diabetes mellitus complication status: with circulatory complication Diabetes mellitus complication detail: with other circulatory complications Qualified Code(s): E11.59 - Type 2 diabetes mellitus with other circulatory complications Is this a current diagnosis for this admission?: Yes Plan: Outpatient regiment with Humalog sliding scale, follow-up A1c (3) Hyperlipidemia Qualifiers: Hyperlipidemia type: unspecified Qualified Code(s): E78.5 - Hyperlipidemia, unspecified Is this a current diagnosis for this admission?: Yes Plan: Empiric statin ordered, follow-up lipid profile. - Time Time Spent: 50 to 70 Minutes - Inpatient Certification Medical Necessity: Need Close Monitoring Due to Risk of Patient Decompensation
== END 2019-01-09 17:26 | disposition home or self-care (01) ==
LOC: ER 14:31 → EH 20:20 → 3S 22:45
PROVIDERS: ADMIT Internal Medicine; ATTEND Internal Medicine
DX: I63.9 Cerebral infarction, unspecified (principal); R47.81 Slurred speech; R27.0 Ataxia, unspecified; E11.59 Type 2 diabetes mellitus with other circulatory complications; R29.6 Repeated falls; S00.81XA Abrasion of other part of head, initial encounter; W19.XXXA Unspecified fall, initial encounter; N39.0 Urinary tract infection, site not specified; B95.1 Streptococcus, group B, as the cause of diseases classified elsewhere; E78.5 Hyperlipidemia, unspecified; I10 Essential (primary) hypertension; I25.2 Old myocardial infarction; E66.9 Obesity, unspecified; Z87.891 Personal history of nicotine dependence; Z82.49 Family history of ischemic heart disease and other diseases of the circulatory system; Z79.899 Other long term (current) drug therapy; Z79.82 Long term (current) use of aspirin; Z79.84 Long term (current) use of oral hypoglycemic drugs; Z86.73 Personal history of transient ischemic attack (TIA), and cerebral infarction without residual deficits
CPT/HCPCS: 93005; 99291; 96372; 96365; 36415 ×3; 87040; 87086; 82553 ×2; 82962 ×2; 82550 ×2; 84443; 85025 ×2; 85652; 87088; 80048 ×2; 80053; 81001; 84484 ×2; 80307; 83036; 80061; 93880; 70553; 71046; 70450; 93010; 97110; 97116; 97161; A9576; A9270 ×10; J1644 ×3; J3490 ×3; J7030; J0696; J1815

== ENCOUNTER 2019-05-04 19:17 | Emergency (ER) | payer MEDICARE, OTHER ==
--- NOTE | 2019-05-04 21:34 | RADIOLOGY REPORT (SQ) ---
EXAM DESCRIPTION: XR TIBIA FIBULA 2 VIEWS COMPLETED DATE/TME: 05/04/2019 20:18 CLINICAL HISTORY: 68 years, Female, fall COMPARISON: None. NUMBER OF VIEWS: 4 TECHNIQUE: 4 view right tibia fibula LIMITATIONS: None. FINDINGS: Negative for fracture or dislocation. Mild degenerative change of the knee. Occasional spurs IMPRESSION: No acute osseous abnormality copyright 2010 [employer]- All Rights Reserved
[2019-05-04] MEDS ORDERED: ACETAMINOPHEN 325 MG TABLET PO ONE (22:35)
--- NOTE | 2019-05-04 22:43 | ER Document Report ---
HPI - HPI Patient complains to provider of: fall Time Seen by Provider: 05/04/19 22:35 Pain Level: 5 Context: Patient is a 68-year-old female presents to the emergency department for right guerra pain. Patient states she was helping her daughter take her groceries inside the house this afternoon where she tripped and fell on the steps landing on her right guerra. Patient states she does have a history of vertigo but is denying feeling lightheaded or dizzy at this time or during the fall. Patient also has a history of CVA, [place], hyperlipidemia, hypertension. Patient's denying hitting her head, neck, back, loss of consciousness, vomiting, any other complaints besides generalized pain in her right Proximal guerra. Past Medical History - General Information source: Patient - Social History Smoking Status: Unknown if Ever Smoked Family History: DM, Hypertension - Past Medical History Cardiac Medical History: Reports: Hx Heart Attack - 2012, Hx Hypercholesterolemia, Hx Hypertension Pulmonary Medical History: Reports: Hx Asthma - as a teenager Neurological Medical History: Reports: Hx Cerebrovascular Accident - NO RESIDUALS. Denies: Hx Seizures Endocrine Medical History: Reports: Hx Diabetes Mellitus Type 2 Renal/ Medical History: Denies: Hx Peritoneal Dialysis GI Medical History: Denies: Hx Hepatitis, Hx Hiatal Hernia, Hx Ulcer Psychiatric Medical History: Reports: Hx Depression Infectious Medical History: Denies: Hx Hepatitis Past Surgical History: Reports: Hx Hysterectomy, Hx Tubal Ligation. Denies: Hx Mastectomy, Hx Open Heart Surgery, Hx Pacemaker - Immunizations Hx Diphtheria, Pertussis, Tetanus Vaccination: Yes Hx Pneumococcal Vaccination: 11/09/17 Vertical Provider Document - CONSTITUTIONAL Agree With Documented VS: Yes Notes: GENERAL: Alert, interacts well. No acute distress. HEAD: Normocephalic, atraumatic. EYES: Pupils equal, round, and reactive to light. Extraocular movements intact. ENT: Oral mucosa moist, tongue midline. NECK: Full range of motion. Supple. Trachea midline. LUNGS: Clear to auscultation bilaterally, no wheezes, rales, or rhonchi. No respiratory distress. HEART: Regular rate and rhythm. No murmur ABDOMEN: Soft, non-tender. Non-distended. Bowel sounds present in all 4 quadrants. EXTREMITIES: Moves all 4 extremities spontaneously. No edema, normal radial and dorsalis pedis pulses bilaterally. No cyanosis. Full range of motion right hip, right knee, right ankle. Patient is complaining of generalized pain proximal aspect of right guerra. No outward signs of trauma, erythema or ecchymosis noted. 5 out of 5 strength all 4 extremities. BACK: no cervical, thoracic, lumbar midline tenderness. No saddle anesthesia, normal distal neurovascular exam. NEUROLOGICAL: Alert and oriented x3. Normal speech. cranial nerves II through XII grossly intact PSYCH: Normal affect, normal mood. SKIN: Warm, dry, normal turgor. No rashes or lesions noted. - INFECTION CONTROL TRAVEL OUTSIDE OF THE [place] IN LAST 30 DAYS: No Course - Re-evaluation Re-evalutation: 05/04/19 22:38 Tibia/Fibula X-Ray 05/04/19 20:18 IMPRESSION: No acute osseous abnormality copyright 2010 [employer]- All Rights Reserved I discussed patient's negative x-ray results with her at bedside. I discussed close follow-up with primary care provider with close return precautions. Patient is requesting an Oscar wrap, it was provided. Discussed close follow-up with primary care provider and orthopedics if needed. Patient requesting, "something stronger than Tylenol, like morphine." I discussed use of Tylenol [id number] and Motrin as needed. Patient stable for discharge. - Vital Signs Vital signs: Temp Pulse Resp BP Pulse Ox 98.8 F 106 H 14 110/81 94 05/04/19 20:04 05/04/19 22:26 05/04/19 22:26 05/04/19 22:26 05/04/19 22:26 Discharge - Discharge Clinical Impression: Right leg injury Qualifiers: Encounter type: initial encounter Qualified Code(s): S89.91XA - Unspecified injury of right lower leg, initial encounter Condition: Stable Disposition: HOME, SELF-CARE Instructions: Leg Pain Nonspecific ([facility]) Additional Instructions: As we discussed you have been seen and treated in the emergency department for an injury to your right lower extremity. Likely your x-rays revealed no signs of fractures. Unfortunately you may be more sore tomorrow than you are today. Please take [id number] analgesics for generalized pain. Please also apply ice to the injured area and elevate it as needed. Please follow-up with your primary care provider in the next 24 to 48 hours. Please return to the emergency room for any concerns. Phone numbers for orthopedic provider Dr. Allen will be provided in this packet. Referrals: YAKELIN THORNTON PA-C [Primary Care Provider] - Follow up as needed JESUS ALLEN MD [ACTIVE STAFF] - Follow up as needed
[2019-05-04 22:58] VITALS: BP 164/75
== END 2019-05-04 22:55 | disposition home or self-care (01) ==
LOC: ER 19:17
DX: S89.91XA Unspecified injury of right lower leg, initial encounter (principal); W10.9XXA Fall (on) (from) unspecified stairs and steps, initial encounter; Y92.009 Unspecified place in unspecified non-institutional (private) residence as the place of occurrence of the external cause; E78.5 Hyperlipidemia, unspecified; I10 Essential (primary) hypertension; E11.9 Type 2 diabetes mellitus without complications; Z86.73 Personal history of transient ischemic attack (TIA), and cerebral infarction without residual deficits; Z90.710 Acquired absence of both cervix and uterus; I25.2 Old myocardial infarction
CPT/HCPCS: 99283; 73590; A9270